=== PATIENT | female | born 1965 | race Caucasian/White ===

== ENCOUNTER 2025-03-11 10:18 | Outpatient (REF) | payer BC, SELFPAY ==
--- NOTE | ~2025-03-11 | XR_ITS ---
EXAMINATION: XR ABDOMEN 1 VIEW (KUB) HISTORY: abd pain and cramping COMPARISON: There are no prior studies available for comparison. FINDINGS: Two supine views of the abdomen are submitted. The bowel gas pattern is unremarkable, without evidence of mechanical obstruction. There are vascular calcifications in the pelvis. There are no abnormal soft tissue masses. There is moderate degenerative disc disease at L5-S1. XR/XR KUB IMPRESSION: Unremarkable bowel gas pattern. Electronically signed by: Dany Hernandez MD 03/11/2025 11:42 AM EDT
--- OUTSIDE RECORDS SUMMARY | 2025-03-11 11:17 | XMS_ITS | Data Portability ---
Author Organization [facility], , [facility] Address [address] [place] [address] Assessment Encounter Date Assessment Date Assessment LastModified by Organization Details LastModified Time 06/23/2020 06/23/2020 Patient agreed to this visit via a secure telehealth platform due to the COVID -19 pandemic. Patient understands this is a scheduled visit and the usual procedures with regard to billing and confidentialit y apply. Patient was notified that the provider [place] [facility] [place] During the visit the patient s medical history and medical record were reviewed. The patient was notified to call our office for worsening or urgent symptoms. jfaaron Not available 06/23/2020 17:16:17 09/10/2020 09/10/2020 Patient agreed to this visit via a secure telehealth platform due to the COVID -19 pandemic. Patient understands this is a scheduled visit and the usual procedures with regard to billing and confidentialit y apply. Patient was notified that the provider location is [place] Patient location: home During the visit the patient s medical history and medical record were reviewed. The patient was notified to call our office for worsening or urgent symptoms. [email or web address] Not available 09/10/2020 09:07:31 Plan of Treatment Reminders Order Date Submit Date Provider Last Modified By Organization Details Last Modified Time Details Appointments None recorded. Lab C3 + C4 (complement ), serum 2020 021 [facility], [address] [place], [address], 11:56:04 sjogren antibody panel (ssa, ssb, ro, la), serum 2020 021 [facility], [address] [place] [address], [address], 13:34:11 antoni-1 Ab, serum 2020 021 [facility], [address] [place] [address], [id number], 1 14:22:17 protein electrophor esis panel, serum or plasma 2020 021 [facility], [address] [place] [address], [id number], 1 17:06:02 [id number]-B27 genotype, blood 2020 021 [facility], [address] [place] [address], [address], 1 14:22:17 erythrocyte sedimentati on rate by westergren method 2020 021 [facility], [address] [place] [address], [address], 1 12:05:15 C-reactive protein, quantitativ e, serum or plasma 2020 021 [facility], [address] [place] [address], [address], 12:21:58 BMP, serum or plasma 2020 021 [facility], [address] [place] [address], [address], 1 13:56:40 lipid panel, serum 2020 021 [facility], [address] [place] [address], [address], 1 13:56:40 TSH, serum or plasma 2020 021 [facility], [address] [place] [address], [address], 1 16:03:05 C-reactive protein, quantitativ e, serum or plasma 2019 [facility], [address] [place] [address], [address], 1 16:12:50 ESR (erythrocyt e sedimentati on rate), blood 2019 [facility], [address] [place] [address], [id number], 1 14:45:29 rf (rheumatoid factor), serum 2019 [facility], [address] [place] [address], [address], 1 22:27:33 ANGELICA (antinuclea r antibodies) screen, ifa, serum 2019 [facility], [address] [place] [address], [address], 1 22:27:33 ccp (cyclic citrullinat ed peptide) igg, serum 2019 [facility], [address] [place] [address], [address], 1 22:27:35 lyme disease igg+igm Ab, serum 2019 [facility], [address] [place] [address], [address], 1 22:27:34 uric acid, serum or plasma 2019 [facility], [address] [place] [address], [address], 16:12:49 Referral orthopedic referral 2019 LEORA Not available 05:06:32 Procedures colonoscopy procedure (PROC) 2019 codillee 1 [facility], [address] [place], [address], 0 12:27:31 Surgeries None recorded. Imaging XR, knee - R knee pain after fall 02/2020 [facility] (Im[facility]), [address] [place], [address], 0 08:56:44 XR, hand 2019 [facility] [address] [place], [address], 0 09:01:08 Medication Orders None recorded. Patient TargetsNo targets recorded. Patient Instructions Encounter Date Encounter Id Patient Instructions Last Modified By Organization Details Last Modified Time 06/23/2020 [id number] rec: haelthier diet- for hand joints. see dr martinez and get labs for inflammatory arhtropathy and knee x-ray [facility] Not available 06/23/2020 17:26:51 09/10/2020 [id number] well visit, wome n 50 to 65: care instructions Not available 09/10/2020 09:06:59 - can schedule for in office visit for pap smear once recovered from surgery [email or web address] Not available 09/10/2020 09:07:13 Reason for Referral Orthopedic Referral for Pain in right knee Referring Physician: Fran Lyman, Family Medicine, Encounter Date: 06/23/2020 Results Created Date Observation Date Name Description Value Unit Range Abnormal Flag Note LastModifiedBy Organization Detail LastModifiedTime 09/01/20 20 09/01/2020 staph yloco ccus sp, cultu re, unspe cifie d speci men special requests None Not Available [facility] ([facility]) [address] [place], [address], 09/03/2020 12:01:36 09/01/20 20 09/02/2020 staph yloco ccus sp, cultu re, unspe cifie d speci men MRSA/mssa pre-op cult No MRSA or MSSA isolat ed Not Available [facility] (Outpatient) [address] [place], [address], 09/03/2020 12:01:36 09/10/19 21 09/10/2020 BMP, serum or plasm a glucose 85 mg/dL 70-100 Not Available [address], [address], 09/10/2020 13:56:39 09/10/19 21 09/10/2020 BMP, serum or plasm a BUN 24 mg/dL 7-18 high Not Available [address], [address], 09/10/2020 13:56:39 09/10/19 21 09/10/2020 BMP, serum or plasm a creatinine 0.9 mg/dL 0.8-1. 3 Not Available [address], [address], 09/10/2020 13:56:39 09/10/19 21 09/10/2020 BMP, serum or plasm a B/C 26.7 ratio Not Available [address], [address], 09/10/2020 13:56:39 09/10/19 21 09/10/2020 BMP, serum or plasm a GFR -non 72.8 mL/mi n Recom elmer d GFR by the Natio nal Kidne y Found ation >60 mL/mi n/1.7 3m2 - Arely l <60 mL/mi n/1.7 3m2 - Chron ic Kidne y Disea se <15 mL/mi n/1.7 3m2 - Kidne y Failu re Not Available [address], [address], 09/10/2020 13:56:39 09/10/19 21 09/10/2020 BMP, serum or plasm a GFR - if 83.7 mL/mi n For Afric an Ameri can patie nts: Resul ts Multi plied by 1.21 Not Available [address], [address], 09/10/2020 13:56:39 09/10/19 21 09/10/2020 BMP, serum or plasm a sodium 142 mmol/ L 136-14 5 Not Available [address], [address], 09/10/2020 13:56:39 09/10/19 21 09/10/2020 BMP, serum or plasm a potassium 4.7 mmol/ L 3.5-5. 1 Not Available [address], [address], 09/10/2020 13:56:39 09/10/19 21 09/10/2020 BMP, serum or plasm a chloride 105 mmol/ L 96-107 Not Available [address], [address], 09/10/2020 13:56:39 09/10/1909/10/2020 BMP, serum or plasm a anion gap 8.9 5.0-15 .0 Not Available [address], [address], 09/10/2020 13:56:39 09/10/19 21 09/10/2020 BMP, serum or plasm a CO2 28 mmol/ L 21-32 Not Available [address], [address], 09/10/2020 13:56:39 09/10/1909/10/2020 BMP, serum or plasm a calcium 9.1 mg/dL 8.5-10 .3 Not Available [address], [address], 09/10/2020 13:56:39 09/10/1909/10/2020 lipid panel , serum cholesterol 238 mg/dL <200 mg/dl Delmy able 200-2 39 mg/dl Borde rline High >240 mg/dl High Not Available [address], [address], 09/10/2020 13:56:40 09/10/19 21 09/10/2020 lipid panel , serum triglyceride s 157 mg/dL <150 mg/dL Arely l 150-1 99 mg/dL Borde rline High 200-4 99 mg/dL High >500 mg/dL Very High Not Available [address], [address], 09/10/2020 13:56:40 09/10/19 21 09/10/2020 lipid panel , serum direct HDL 53 mg/dL <40 mg/dl - Major Risk for CHD >60 mg/dl - Negat christen Risk for CHD Not Available [address], [address], 09/10/2020 13:56:40 09/10/19 21 09/10/2020 LDL, calcu lated , serum (OBS) LDL - calculated 153.6 RISK CATEG ORY LDL GOAL _ CHD or CHD Risk Equiv alent s <100 mg/dl (10-y ear risk >20%) 2+ Risk Facto rs <130 mg/dl (10-y ear risk <= 20%) 0-1 Risk Facto r <160 mg/dl [facility] all peopl e with 0-1 risk facto r have a 10 year risk <10%, thus 10 year risk asses ment in peopl e with 0-1 risk facto r is not neces sanjay. Not Available [address], [address], 09/10/2020 13:56:41 09/10/19 21 09/10/2020 ESR (eryt hrocy te sedim entat ion rate) , blood sed rate 19.0 0.0-15 .0 high Not Available [address], [address], 09/10/2020 14:45:29 09/10/1909/10/2020 TSH, serum or plasm a TSH 1.88 uIU/m L 0.50-6 .00 The Ameri can Colle ge of Endoc rinol ogy and Ameri can Thyro id Assoc iatio n recom mend goal TSH value s ayan en 0.4-4 .0 mIU/m L. Not Available [address], [address], 09/10/2020 16:03:05 09/10/19 21 09/10/2020 uric acid, serum or plasm a uric acid 5.6 mg/dL 2.6-6. 0 Not Available [address], [address], 09/10/2020 16:12:49 09/10/19 21 09/10/2020 C-harley ctive prote in, quant itati ve, serum or plasm a C-reactive protein -quant 2.5 mg/L 0.0-9. 0 Not Available [address], [address], 09/10/2020 16:12:50 09/10/19 21 09/11/2020 rf (rheu matoi d facto r), serum rheumatoid factor <14 IU/mL <14 normal Not Available [employer] [facility] [address], [address], 09/11/2020 22:27:33 09/10/19 21 09/11/2020 ANGELICA (anti nucle ar antib odies ) scree n, ifa, serum ANGELICA screen, ifa POSITI VE negati ve abnormal ANGELICA IFA is a first line scree n for detec ting the prese nce of up to appro ximat naseem 150 autoa ntibo dies in vario us autoi mmune disea ses. A posit christen ANGELICA IFA resul t is sugge stive of autoi mmune disea se and refle xes to titer and lissate rn. Furth er labor atory testi ng may be consi dered if clini kyrie indic ated. For addit ional infor matio n, pleas e refer to http: //orion Cortes stDia gnost ics.c om/fa q/FAQ 177 (This link is being provi ded for infor irma strange/ educa barbara l purpo ses only. ) Not Available [facility] [address], [place], [address], 09/11/2020 22:27:33 09/10/19 21 09/11/2020 ANGELICA (anti nucle ar antib odies ) scree n, ifa, serum ANGELICA titer 1:40 titer high A low level ANGELICA titer may be prese nt in pre-c linic al autoi mmune disea ses and arely l indiv idual s. Refer ence Range <1:40 Negat christen 1:40- 1:80 Low Antib shirley Level >1:80 Ravia farhana Antib shirley Level Not Available [facility] [address], [address], 09/11/2020 22:27:33 09/10/19 21 09/11/2020 ANGELICA (anti nucle ar antib odies ) scree n, ifa, serum ANGELICA pattern Mitoti c, Centro some abnormal Disti nct centr ioles (1-2/ cell) in cytop lasm and at the poles of mitot ic spind le. Patte rn is rare in syste radha scler osis, Amelie ud's pheno chele , and some infec tions (jas l and mycop lasma ). AC-24 : Centr osome Inter natio nal Conse nsus on ANGELICA Patte rns (http s://d oi.or g/10. 1515/ ccl2017- 0052) Not Available [facility] [address], [address], 09/11/2020 22:27:33 09/10/19 21 09/11/2020 ANGELICA (anti nucle ar antib odies ) scree n, ifa, serum ANGELICA titer 1:40 titer high A low level ANGELICA titer may be prese nt in pre-c linic al autoi mmune disea ses and arely l indiv idual s. Refer ence Range <1:40 Negat christen 1:40- 1:80 Low Antib shirley Level >1:80 Ravia farhana Antib shirley Level Not Available [facility] [address], [address], 09/11/2020 22:27:33 09/10/19 21 09/11/2020 ANGELICA (anti nucle ar antib odies ) scree n, ifa, serum ANGELICA pattern Nuclea r, Fine Speckl ed abnormal Fine speck led patte rn is assoc iated with Sjogr en's syndr ome, syste radha lupus eryth emato ibrahima (SLE) and derma tomyo sitis . AC-4: Fine Speck led Inter natio nal Conse nsus on ANGELICA Patte rns (http s://d oi.or g/10. 1515/ [facility]- 2017- 0052) Not Available [facility] [address], [place], [address], 09/11/2020 22:27:33 09/10/19 21 09/11/2020 lyme disea se igg+i gm, serum , refle x weste rn blot lyme Ab screen <0.90 index normal Index Inter preta tion ----- ----- ----- ---- < 0.90 Negat christen 0.90- 1.09 Equiv ocal > 1.09 Posit christen As recom elmer d by the Food and Drug Admin istra tion (FDA) , all sampl es with posit christen or equiv ocal resul ts in a Borre mat burgd orfer i antib shirley scree n will be teste d using a blot metho d. Posit christen or equiv ocal scree pramod test resul ts shoul d not be inter prete d as truly posit christen until verif ied as such using a suppl ement al assay (e.g. , B. burgd orfer i blot) . The scree pramod test and/o r blot for B. burgd orfer i antib odies may be false ly negat christen in early stage s of Lyme disea se, inclu ding the perio d when eryth tod migra ns is appar ent. Not Available [facility] [address], [address], 09/11/2020 22:27:34 09/10/19 21 09/11/2020 ccp (cycl ic citru llina farhana pepti de) igg, serum cyclic citrullinate d peptide (ccp) Ab (IgG) <16 units normal Refer ence Range Negat christen: <20 Weak Posit christen: 20-39 Moder ate Posit christen: 40-59 Stron g Posit christen: >59 Not Available [facility] [address], [address], 09/11/2020 22:27:35 09/15/19 21 09/15/2020 SARS CoV 2 RNA (COVI D-19) , QL, barrel planer-P CR, respi rator y speci men covid-19 comment 14 Not Available [facility]) [address] [place] [address], [address], 09/15/2020 15:44:57 09/15/19 21 09/15/2020 SARS CoV 2 RNA (COVI D-19) , QL, barrel planer-P CR, respi rator y speci men covid testing status Sent to [facility] Not Available [facility] ([facility]) [address] [place], [address], 09/15/2020 15:44:57 09/15/19 21 09/16/2020 SARS CoV 2 RNA (COVI D-19) , QL, barrel planer-P CR, respi rator y speci men specimen source/descr iption ROSHNI CHACON AL SWAB Not Available [facility] ([facility]) [address] [place], [address], 09/16/2020 12:53:17 09/15/19 21 09/16/2020 SARS CoV 2 RNA (COVI D-19) , QL, barrel planer-P CR, respi rator y speci men sars-cov 2 (covid-19) PCR Not Detect ed not detect ed Negat christen resul ts do not precl ude SARS- CoV-2 infec tion and shoul d not be used as the sole basis for patie nt manag ement decis ions. Negat christen resul ts must be combi gabriele with clini toya obser vatio ns, patie nt histo ry, and epide miolo gical infor matio n. Optim um speci men types and timin g for peak viral level s durin g infec tion by SARS- CoV-2 have not been deter mined . Colle ction of multi ple speci mens from the same patie nt may be neces sanjay to detec t the virus . This test has been autho rized by the FDA under an Emerg ency Use Autho rizat ion (EUA) for use by autho rized labor atori es. Not Available [facility] ([facility]) [address] [place], [address], 09/16/2020 12:53:17 09/19/19 21 09/19/2020 brady radha respi rator y viral order (pro) test ordered Rapid COVID has been ordere d Not Available [facility]) [address] [place], [address], 09/19/2020 10:55:01 09/19/19 21 09/19/2020 brady radha respi rator y viral order (pro) specimen source NASAL Not Available [facility] ([facility]) [address] [place], [address], 09/19/2020 10:55:01 09/19/19 21 09/19/2020 brady radha respi rator y viral order (pro) sars-cov-2 result Negati ve negati ve Negat christen resul ts do not precl ude SARS- CoV-2 infec tion and shoul d not be used as the sole basis for patie nt manag ement decis ions. Negat christen resul ts must be combi gabriele with clini toya obser vatio ns, patie nt histo ry, and epide miolo gical infor matio n. Testi ng was perfo rmed using the Abbot t ID NOW COVID -19 assay perfo rmed on the Abbot t ID NOW Instr ument . Fact sheet s for this Emerg ency Use Autho rizat ion can be found at the [employer] links : For Healt hcare Provi ders: https ://[employer].OpenROV .gov/ media /5108 23/do wnloa d For Patie nts: https ://[employer].OpenROV .gov. media /3188 24/do wnloa d. Not Available [facility]) [address] [place] [address], [address], 09/19/2020 10:55:01 10/10/19 21 10/10/2020 CBC WBC 4.96 K/ L 3.98-1 0.04 Not Available [address], [address], 10/10/2020 10:35:07 10/10/19 21 10/10/2020 CBC RBC 4.19 M/ L 3.93-5 .22 Not Available [address], [address], 10/10/2020 10:35:07 10/10/19 21 10/10/2020 CBC HGB 13.3 g/dL 11.2-1 5.7 Not Available [address], [address], 10/10/2020 10:35:07 10/10/19 21 10/10/2020 CBC HCT 39.7 % 34.1-4 4.9 Not Available [address], [address], 10/10/2020 10:35:07 10/10/19 21 10/10/2020 CBC MCV 94.7 fL 79.4-9 4.8 Not Available [address], [address], 10/10/2020 10:35:07 10/10/19 21 10/10/2020 CBC MCH 31.7 pg 25.6-3 2.2 Not Available [address], [address], 10/10/2020 10:35:07 10/10/19 21 10/10/2020 CBC MCHC 33.5 g/dL 32.2-3 5.5 Not Available [address], [address], 10/10/2020 10:35:07 10/10/1910/10/2020 CBC plt 263 K/ L 182-36 9 Not Available [address], [address], 10/10/2020 10:35:07 10/10/19 21 10/10/2020 CBC MPV 9.9 fL 9.4-12 .3 Not Available [address], [address], 10/10/2020 10:35:07 10/10/1910/10/2020 CBC neut% 66.2 % 34.0-7 1.1 Not Available [address], [address], 10/10/2020 10:35:07 10/10/1910/10/2020 CBC neut# 3.28 1.56-6 .13 Not Available [address], [address], 10/10/2020 10:35:07 10/10/19 21 10/10/2020 CBC lymph % 26.0 % 19.3-5 1.7 Not Available [address], [address], 10/10/2020 10:35:07 10/10/19 21 10/10/2020 CBC lymph # 1.29 K/ L 1.18-3 .74 Not Available [address], [address], 10/10/2020 10:35:07 10/10/19 21 10/10/2020 CBC mono% 5.0 % 4.7-12 .5 Not Available [address], [address], 10/10/2020 10:35:07 10/10/19 21 10/10/2020 CBC mono# 0.25 0.24-0 .56 Not Available [address], [address], 10/10/2020 10:35:07 10/10/19 21 10/10/2020 CBC eo% 2.6 % 0.7-5. 8 Not Available [address], [address], 10/10/2020 10:35:07 10/10/19 21 10/10/2020 CBC eo# 0.13 0.04-0 .36 Not Available [address], [address], 10/10/2020 10:35:07 10/10/19 21 10/10/2020 CBC baso% 0.2 % 0.1-1. 2 Not Available [address], [address], 10/10/2020 10:35:07 10/10/19 21 10/10/2020 CBC baso# 0.01 0.00-0 .08 Not Available [address], [address], 10/10/2020 10:35:07 10/10/19 21 10/10/2020 CBC RDW-CV 12.6 % 11.7-1 4.4 Not Available [address], [address], 10/10/2020 10:35:07 10/10/19 21 10/10/2020 CBC Ig% 0.000 % 0.000- 1.500 Ig % >0.5 Indic ates possi ble Left Shift Not Available [address], [address], 10/10/2020 10:35:07 10/10/19 21 10/10/2020 CBC Ig# 0.000 0.000- 0.093 Not Available [address], [address], 10/10/2020 10:35:07 10/10/19 21 10/10/2020 CBC NRBC% 0.0 % 0.0-0. 2 Not Available [address], [address], 10/10/2020 10:35:07 10/10/19 21 10/10/2020 CBC NRBC# 0.000 0.000- 0.012 Not Available [address], [address], 10/10/2020 10:35:07 10/10/19 21 10/10/2020 PT/IN R PT 9.9 secon ds 9.0-10 .4 Not Available [address], [address], 10/10/2020 10:57:35 10/10/19 21 10/10/2020 PT/IN R INR 1.0 0.9-1. [address]ed Value of 2.0-3 .0 for proph ylaxi s of Venou s Thomb osis, and preve ntion of Embol ism. Sugge sted Value of 2.5-3 .5 for preve ntion of Recur rent Embol ism or patie nts with Mecha nical Prost hetic Heart Valve s. Not Available [address], [address], 10/10/2020 10:57:35 10/10/19 21 10/10/2020 activ ated parti al throm bopla stin time, coagu latio n assay , blood PTT 25 secon ds 23-31 Not Available [address], [place], [address], 10/10/2020 10:57:36 10/10/19 21 10/14/2020 homoc ystei ne, serum or plasm a homocysteine 10.3 umol/ L <10.4 normal Homoc ystei ne is incre ased by funct ional defic iency of folat e or vitam in B12. Testi ng for methy lmalo june acid diffe renti ates betwe en these defic ienci es. Other cause s of incre ased homoc ystei ne inclu de renal failu re, folat e antag onist s such as metho trexa te and pheny toin, and expos ure to nitro us oxide . Ruby Peraza, et al., Ronna Inter n Med. 1999; 131(5 ):331 -9. Not Available [employer] [facility] [address], [address], 10/14/2020 11:31:23 10/10/19 21 10/14/2020 prote in S activ ity, plasm a protein S, activity 111 %_nor mal 60-140 normal Not Available [facility] [address], [place], [address], 10/14/2020 11:31:24 10/10/19 21 10/14/2020 prote in C activ ity, plasm a protein C, activity 180 %_nor mal 70-180 normal Not Available [facility] [address], [address], 10/14/2020 11:31:25 10/10/19 21 10/15/2020 quant ifero n(R)- TB gold plus, 1 tube quantiferon( R)-TB gold plus, 1 tube NEGATI VE negati ve normal Negat christen test resul t. M. tuber yogios is compl ex infec tion unlik naseem. Not Available [facility] [address], [address], 10/15/2020 11:31:27 10/10/19 21 10/15/2020 quant ifero n(R)- TB gold plus, 1 tube nil 0.07 IU/mL normal Not Available [facility] [address], [address], 10/15/2020 11:31:27 10/10/19 21 10/15/2020 quant ifero n(R)- TB gold plus, 1 tube mitogen-nil >10.00 IU/mL normal Not Available [facility] [address], [address], 10/15/2020 11:31:27 10/10/19 21 10/15/2020 quant ifero n(R)- TB gold plus, 1 tube TB1-nil 0.00 IU/mL normal Not Available [facility] [address], [address], 10/15/2020 11:31:27 10/10/19 21 10/15/2020 quant ifero n(R)- TB gold plus, 1 tube TB2-nil 0.00 IU/mL normal The Nil tube value refle cts the backg round inter feron gamma immun e respo nse of the patie nt's blood sampl e. This value has been subtr acted from the patie nt's displ ayed TB and Mitog en resul ts. Lower than expec farhana resul ts with the Mitog en tube preve nt false -nega tive Quant ifero n readi ngs by detec ting a patie nt with a poten tial immun e suppr essiv e condi tion and/o r subop timal pre-a nalyt ical speci men handl ing. The TB1 Antig en tube is coate d with the M. tuber culos is-sp ecifi c antig ens desig gabriele to elici t respo nses from TB antig en prime d CD4+ helpe r T-lym phocy carmela. The TB2 Antig en tube is coate d with the M. tuber culos is-sp ecifi c antig ens desig gabriele to elici t respo nses from TB antig en prime d CD4+ helpe r and CD8+ cytot oxic T-lym phocy carmela. For addit ional infor kayce wright e refer to https ://ed ucati on.[employer]/f aq/FA Q204 (This link is being provi ded for infor irma strange/ mark webster purpo ses only. ) Not Available [facility] [address], [address], 10/15/2020 11:31:27 10/10/19 21 10/15/2020 C3 + C4 (comp lemen t), serum complement component C3C 75 mg/dL 83-193 low Not Available [facility] [address], [address], 10/15/2020 11:31:32 10/10/19 21 10/15/2020 C3 + C4 (comp lemen t), serum complement component C4C 12 mg/dL 15-57 low Not Available [facility] [address], [address], 10/15/2020 11:31:32 10/10/19 21 10/15/2020 antip hosph olipi d antib shirley panel , serum interpretati on see note The antip hosph olipi d antib shirley syndr ome (APS) is a clini toya-p athol ogic corre latio n that inclu adonis a clini toya event (e.g. throm bosis , pregn radha loss, throm bocyt openi a) and persi stent posit christen antip hosph o- lipid antib odies (IgM or IgG GARY >40 MPL/G PL, IgM or IgG anti- b2GPI antib odies or a lupus antic oagul ant). Inter natio nal conse nsus guide lines for APS sugge st waiti ng at least 12 weeks befor e retes ting to confi rm antib shirley persi stenc e. The Syste radha Lupus Inter natio nal Colla borat ing Clini cs immun ologi toya class ifica tion crite angela for syste radha lupus eryth emato ibrahima (SLE) inclu de testi ng for isoty pe IgA, which has yet to be incor po- rated into APS crite angela. Low level antip hosph olipi d antib odies may somet imes be detec farhana in the setti ng of infec tion, drug thera py or aging . Not Available [employer] [facility] [address], [address], 10/15/2020 11:31:32 10/10/19 21 10/15/2020 antip hosph olipi d antib shirley panel , serum B2 glycoprotein I (IgG)Ab <9 sgu <=20 Not Available [facility] [address], [address], 10/15/2020 11:31:32 10/10/19 21 10/15/2020 antip hosph olipi d antib shirley panel , serum B2 glycoprotein I (IgA)Ab <9 julia <=20 Not Available [employer] [facility] [address], [address], 10/15/2020 11:31:32 10/10/19 21 10/15/2020 antip hosph olipi d antib shirley panel , serum B2 glycoprotein I (IgM)Ab <9 smu <=20 Not Available [facility] [address], [address], 10/15/2020 11:31:32 10/10/19 21 10/15/2020 antip hosph olipi d antib shirley panel , serum phosphatidyl serine Ab (IgA) <20 U/mL <20 Phosp hatid ylser ine (IgA) Refer ence range : <20 U/mL Negat christen 20-30 U/mL Equiv ocal - Found in small perce ntage of the healt hy popul ation ; may be react christen >30 U/mL Posit christen - Risk facto r for throm bosis Not Available [facility] [place] [facility] [address], [place], [address], 10/15/2020 11:31:32 10/10/19 21 10/15/2020 antip hosph olipi d antib shirley panel , serum phosphatidyl serine Ab (IgG) <10 U/mL <10 Phosp hatid ylser ine (IgG) Refer ence range : <10 U/mL Negat christen 10-20 U/mL Equiv ocal - Found in small perce ntage of the healt hy popul ation ; may be react christen >20 U/mL Posit christen - Risk facto r for throm bosis and pregn radha loss. Not Available [facility] [facility] [address], [place], [address], 10/15/2020 11:31:32 10/10/19 21 10/15/2020 antip hosph olipi d antib shirley panel , serum phosphatidyl serine Ab (IgM) <25 U/mL <25 Phosp hatid ylser ine (IgM) Refer ence range : <25 U/mL Negat christen 25-35 U/mL Equiv ocal - Found in small perce ntage of the healt hy popul ation ; may be react christen >35 U/mL Posit christen - Risk facto r for throm bosis Not Available [facility] [facility] [address], [place], [address], 10/15/2020 11:31:32 10/10/19 21 10/15/2020 antip hosph olipi d antib shirley panel , serum cardiolipin Ab (IgA) <11 apl <=11 Cardi olipi n Ab (IgA) Refer ence Range : Value Inter preta tion ----- ----- - ----- ----- ----- - < or = 11 Negat christen 12 - 20 Indet ermin ate 21 - 80 Low to Mediu m Posit christen > 80 High Posit christen Not Available [facility] [address], [address], 10/15/2020 11:31:32 10/10/19 21 10/15/2020 antip hosph olipi d antib shirley panel , serum cardiolipin Ab (IgG) <14 gpl <=14 Cardi olipi n Ab (IgG) Refer ence Range : Value Inter preta tion ----- ----- - ----- ----- ----- - < or = 14 Negat christen 15 - 20 Indet ermin ate 21 - 80 Low to Mediu m Posit christen > 80 High Posit christen Not Available [employer] [facility] [address], [address], 10/15/2020 11:31:32 10/10/1910/15/2020 antip hosph olipi d antib shirley panel , serum cardiolipin Ab (IgM) <12 mpl <=12 Cardi olipi n Ab (IgM) Refer ence Range : Value Inter preta tion ----- ----- - ----- ----- ----- - < or = 12 Negat christen 13 - 20 Indet ermin ate 21 - 80 Low to Mediu m Posit christen > 80 High Posit christen Not Available [facility] [facility] [address], [address], 10/15/2020 11:31:32 10/10/19 21 10/15/2020 dsDNA Ab, serum DNA (ds) antibody <1 IU/mL normal IU/mL Inter preta tion < or = 4 Negat christen 5-9 Indet ermin ate > or = 10 Posit christen Not Available [facility] [address], [address], 10/15/2020 11:31:33 10/10/19 21 10/15/2020 ccp (cycl ic citru llina farhana pepti de) igg, serum cyclic citrullinate d peptide (ccp) Ab (IgG) <16 units normal Refer ence Range Negat christen: <20 Weak Posit christen: 20-39 Moder ate Posit christen: 40-59 Stron g Posit christen: >59 Not Available [facility] [address], [address], 10/15/2020 11:31:34 10/10/19 21 10/15/2020 reardon Ab + aircraft seat upholsterer Ab, serum sm antibody <1.0 NEG ai <1.0 neg normal Not Available [facility] [address], [address], 10/15/2020 11:31:35 10/10/19 21 10/15/2020 reardon Ab + aircraft seat upholsterer Ab, serum sm/aircraft seat upholsterer antibody <1.0 NEG ai <1.0 neg normal Not Available [facility] [address], [address], 10/15/2020 11:31:35 10/10/19 21 10/16/2020 RPR (rapi d plasm a reagi n), serum RPR NON-RE ACTIVE nonrea ctive Not Available [address], [address], 10/16/2020 14:01:15 11/11/19 21 11/11/2020 P-anc a, serum myeloperoxid ase antibody <1.0 ai normal Value Inter preta tion ----- ----- ----- ---- <1.0 No Antib shirley Detec farhana > or = 1.0 Antib shirley Detec farhana Autoa ntibo dies to myelo perox idase (MPO) are commo nly assoc iated with the follo wing small -vess el vascu litid es: micro scopi c polya ngiit is, polya rteri tis nodos a, Churg -Stra uss syndr ome, necro tizin g and cresc entic glome rulon ephri tis and occas ional ly granu lomat osis with polya ngiit is (Hank DAVIS er's) . The perin madan sinclair rn, (p-AN CA) is based large ly on autoa ntibo dy to myelo perox idase which serve s as the prima ry antig en. These autoa ntibo dies are prese nt in activ e disea se. Not Available [facility] [place] [facility] [address], [place], [address], 11/11/2020 13:57:01 11/11/19 21 11/11/2020 P-anc a, serum proteinase-3 antibody <1.0 ai normal Value Inter preta tion ----- ----- ----- ---- <1.0 No Antib shirley Detec farhana > or = 1.0 Antib shirley Detec farhana Autoa ntibo dies to prote inase -3 (VA-3 ) are accep farhana as satish cteri stic for granu lomat osis with polya ngiit is (Hank DAVIS er's) , and are detec table in 95% of the histo logic ally prove n cases . The cytop lasmi sky sinclair rn, (c-AN CA), is based large ly on autoa ntibo dy to VA-3 which serve s as the prima ry antig en. These autoa ntibo dies are prese nt in activ e disea se. Not Available [facility] [place] [facility] [address], [place], [address], 11/11/2020 13:57:01 11/11/19 21 11/13/2020 RPR (rapi d plasm a reagi n), serum RPR NON-RE ACTIVE nonrea ctive Not Available [facility] [address] [facility], [place], [address], 11/13/2020 14:02:56 11/16/19 21 11/15/2020 eryth rocyt e sedim entat ion rate by eryn thrasher d ESR 9 mm/h 0-30 Not Available [facility] [address] [place], [address], 11/15/2020 12:05:15 11/16/19 21 11/15/2020 C-harley ctive prote in, quant itati ve, serum or plasm a C reactive protein 5.2 mg/L 0.0-4. 0 high Not Available [facility] [address] [place], [address], 11/15/2020 12:21:58 11/16/19 21 11/15/2020 lfts (hepa tic panel ) alkaline phosphatase 92 U/L 39-117 Not Available [facility] (Out[facility] [address] [place], [address], 11/15/2020 12:22:01 11/16/19 21 11/15/2020 lfts (hepa tic panel ) total bilirubin 0.5 mg/dL 0.0-1. 2 Not Available [facility] [address] [place], [address], 11/15/2020 12:22:01 11/16/19 21 11/15/2020 lfts (hepa tic panel ) direct bilirubin <0.2 mg/dL 0-0.3 Not Available [facility] [address] [place], [address], 11/15/2020 12:22:01 11/16/19 21 11/15/2020 lfts (hepa tic panel ) bilirubin (indirect) NOT CALCUL ATED mg/dL 0-1.5 Not Available [facility] [address] [place], [address], 11/15/2020 12:22:01 11/16/19 21 11/15/2020 lfts (hepa tic panel ) AST 16 U/L 0-37 Not Available [facility] [address] [place], [address], 11/15/2020 12:22:01 11/16/19 21 11/15/2020 lfts (hepa tic panel ) ALT 11 U/L 0-40 Not Available [facility] [address] [place], [address], 11/15/2020 12:22:01 11/16/19 21 11/15/2020 lfts (hepa tic panel ) total protein 6.8 g/dL 6.5-8. 0 Not Available [facility] [address] [place], [address], 11/15/2020 12:22:01 11/16/19 21 11/15/2020 lfts (hepa tic panel ) albumin 4.0 g/dL 3.9-4. 8 Not Available [facility] [address] [place], [address], 11/15/2020 12:22:01 11/16/19 21 11/15/2020 lfts (hepa tic panel ) globulin 2.8 g/dL 1-4.8 Not Available [facility] [address] [place], [address], 11/15/2020 12:22:01 11/16/19 21 11/15/2020 lfts (hepa tic panel ) A/G ratio 1.43 ratio 1.00-4 .80 Not Available [facility] [address] [place], [address], 11/15/2020 12:22:01 11/16/19 21 11/17/2020 C3 (comp lemen t), serum or plasm a C3 116 mg/dL 81-157 Not Available [facility] [address] [place] [address], [address], 11/17/2020 11:13:58 11/16/19 21 11/17/2020 C4 (comp lemen t), serum or plasm a C4 22 mg/dL 12-39 Not Available [facility] [address] [place] [address], [address], 11/17/2020 11:13:59 11/16/19 21 11/17/2020 ANGELICA (anti nucle ar antib odies ) scree n, serum ANGELICA screen on hep 2 POSITI VE negati ve abnormal An ANGELICA Titer has been refle xed. The resul catrina smith Not Available [facility] [address] [place] [address], [address], 11/17/2020 14:49:19 11/16/19 21 11/18/2020 hla-B 27, blood hla-B27 result NEGATI VE not applic able Not Available [facility] [address] [place] [address], [address], 11/18/2020 15:49:46 11/16/1911/18/2020 hla-B 27, blood interpretati on SEE NOTE (NOTE ) HLA-B 27 antig en was not detec farhana. ----- ----- ----- ----A DDITI ONAL INFOR MATIO N---- ----- ----- ----- Metho d: Flow Cytom etry CLIA: [id number] CLIA Lab Direc tor: DAVID Rodriguez MD,Ph D Not Available [facility] [address] [place] [address], [address], 11/18/2020 15:49:46 11/16/19 21 11/19/2020 ANGELICA (anti nucle ar antib odies ) titer + patte rn, ifa, serum ANGELICA titer 1:160 HOMOGE NEOUS 1:160 Speck led Not Available [facility] [address] [place], [address], 11/19/2020 15:29:20 11/16/19 21 11/19/2020 immun ofixa tion only immunofixati on NO MONOCL ONAL PROTEI N DETECT ED. Not Available [facility] [address] [place], [address], 11/19/2020 18:03:43 11/16/19 21 11/20/2020 anca, serum C-anca NEGATI VE negati ve Not Available [facility] [address] [place] [address], [address], 11/20/2020 13:34:00 11/16/19 21 11/20/2020 anca, serum P-anca NEGATI VE negati ve (NOTE ) Negat christen for cANCA and pANCA patte rns by immun ofluo resce nce. ----- ----- ----- ----A DDITI ONAL INFOR MATIO N---- ----- ----- ----- This test was franc buchanan and its perfo rmanc e satish cteri stics deter mined by [place] Neda swanson in a dee r consi stent with CLIA peggy morris ts. This test has not been clear ed or appro anaya by the U.S. Food and Drug Admin istra tion. Not Available [facility] [address] [place], [address], 11/20/2020 13:34:00 11/16/19 21 11/20/2020 antoni-1 Ab, serum antoni 1 IgG <0.2 U <1.0 (negat christen) Not Available [facility] [address] [place], [address], 11/20/2020 13:34:02 11/16/19 21 11/20/2020 prote in elect ropho resis , monoc lonal , serum total protein 6.5 g/dL 6.3-7. 9 Not Available [facility] [address] [place], [address], 11/20/2020 13:34:09 11/16/19 21 11/20/2020 prote in elect ropho resis , monoc lonal , serum albumin 3.1 g/dL 3.4-4. 7 low Not Available [facility] [address] [place], [address], 11/20/2020 13:34:09 11/16/19 21 11/20/2020 prote in elect ropho resis , monoc lonal , serum alpha-1 globulin 0.3 g/dL 0.1-0. 3 Not Available [facility] [address] [place], [address], 11/20/2020 13:34:09 11/16/19 21 11/20/2020 prote in elect ropho resis , monoc lonal , serum alpha-2 globulin 0.9 g/dL 0.6-1. 0 Not Available [facility] [address] [place], [address], 11/20/2020 13:34:09 11/16/19 21 11/20/2020 prote in elect ropho resis , monoc lonal , serum beta-globuli n 1.1 g/dL 0.7-1. 2 Not Available [facility] [address] [place], [address], 11/20/2020 13:34:09 11/16/19 21 11/20/2020 prote in elect ropho resis , monoc lonal , serum gamma-globul in 1.2 g/dL 0.6-1. 6 Not Available [facility] [address] [place], [address], 11/20/2020 13:34:09 11/16/19 21 11/20/2020 prote in elect ropho resis , monoc lonal , serum A/G ratio 0.92 Not Available [facility] [address] [place], [address], 11/20/2020 13:34:09 11/16/19 21 11/20/2020 prote in elect ropho resis , monoc lonal , serum M spike g/dL Test compo nent not appli cable or not repor farhana. Test compo nent not appli cable or not repor farhana. Not Available [facility] [address] [place], [address], 11/20/2020 13:34:09 11/16/19 21 11/20/2020 prote in elect ropho resis , monoc lonal , serum impression SEE NOTE (NOTE ) No appar ent monoc lonal prote in on serum elect ropho resis . See Immun ofixa tion. Not Available [facility] [address] [place], [address], 11/20/2020 13:34:09 11/16/19 21 11/20/2020 prote in elect ropho resis , monoc lonal , serum immunofixati on NO MONOCL ONAL PROTEI N DETECT ED. Not Available [facility] [address] [place], [address], 11/20/2020 13:34:09 11/16/19 21 11/20/2020 sjogr en antib shirley panel (ssa, ssb, ro, la), serum ss-A/RO IgG <0.2 U <1.0 (negat christen) Not Available [facility] [address] [place], [address], 11/20/2020 13:34:11 11/16/19 21 11/20/2020 sjogr en antib shirley panel (ssa, ssb, ro, la), serum ss-B/la IgG <0.2 U <1.0 (negat christen) Not Available [facility] [address] [place], [address], 11/20/2020 13:34:11 11/19/19 21 11/18/2020 urina lysis , dipst ick color YELLOW yellow Not Available [facility] [address] [place], [address], 11/18/2020 16:32:00 11/19/19 21 11/18/2020 urina lysis , dipst ick clarity CLEAR Not Available [facility] [address] [place], [address], 11/18/2020 16:32:00 11/19/19 21 11/18/2020 urina lysis , dipst ick glucose NEGATI VE negati ve Not Available [facility] [address] [place], [address], 11/18/2020 16:32:00 11/19/19 21 11/18/2020 urina lysis , dipst ick bili NEGATI VE negati ve Not Available [facility] [address] [place], [address], 11/18/2020 16:32:00 11/19/19 21 11/18/2020 urina lysis , dipst ick ketones NEGATI VE negati ve Not Available [facility] [address] [place], [address], 11/18/2020 16:32:00 11/19/19 21 11/18/2020 urina lysis , dipst ick specific gravity 1.015 1.005- 1.030 Not Available [facility] [address] [place], [address], 11/18/2020 16:32:00 11/19/19 21 11/18/2020 urina lysis , dipst ick blood NEGATI VE negati ve Not Available [facility] [address] [place], [address], 11/18/2020 16:32:00 11/19/19 21 11/18/2020 urina lysis , dipst ick pH 6.0 5.0-8. 0 Not Available [facility] ([facility] [address] [place], [address], 11/18/2020 16:32:00 11/19/19 21 11/18/2020 urina lysis , dipst ick protein NEGATI VE negati ve Not Available [facility] [address] [place], [address], 11/18/2020 16:32:00 11/19/19 21 11/18/2020 urina lysis , dipst ick nitrite NEGATI VE negati ve Not Available [facility] [address] [place], [address], 11/18/2020 16:32:00 11/19/19 21 11/18/2020 urina lysis , dipst ick leukocyte esterase, ur TRACE negati ve abnormal Not Available [facility] [address] [place], [address], 11/18/2020 16:32:00 11/19/19 21 11/18/2020 urine sedim ent WBC 5-10 /hpf none seen abnormal Not Available [facility] [address] [place], [address], 11/18/2020 16:50:56 11/19/19 21 11/18/2020 urine sedim ent RBC 3-5 /hpf none seen abnormal Not Available [facility] [address] [place], [address], 11/18/2020 16:50:56 11/19/19 21 11/18/2020 urine sedim ent urine epithelial 0-4 none seen abnormal Not Available [facility] [address] [place], [address], 11/18/2020 16:50:56 11/19/19 21 11/18/2020 urine sedim ent mucus 1+ /hpf none seen abnormal Not Available [facility] [address] [place], [address], 11/18/2020 16:50:56 11/19/19 21 11/18/2020 urine sedim ent bacteria TRACE /hpf none seen abnormal Not Available [facility] [address] [place], [address], 11/18/2020 16:50:56 11/19/19 21 11/18/2020 urine sedim ent cast 0-2 HYALI NE CAST Not Available [facility] [address] [place], [address], 11/18/2020 16:50:56 11/25/19 21 2020 C-harley ctive prote in, quant itati ve, serum or plasm a C reactive protein 5.2 mg/L 0.0-4. 0 high Not Available [facility] [address] [place], [address], 2020 18:27:18 11/25/19 21 2020 lfts (hepa tic panel ) alkaline phosphatase 105 U/L 39-117 Not Available [facility] [address] [place], [address], 2020 18:27:19 11/25/19 21 2020 lfts (hepa tic panel ) total bilirubin 0.2 mg/dL 0.0-1. 2 Not Available [facility] [address] [place], [address], 2020 18:27:19 11/25/19 21 2020 lfts (hepa tic panel ) direct bilirubin <0.2 mg/dL 0-0.3 Not Available [facility] [address] [place], [address], 2020 18:27:19 11/25/19 21 2020 lfts (hepa tic panel ) bilirubin (indirect) NOT CALCUL ATED mg/dL 0-1.5 Not Available [facility] [address] [place], [address], 2020 18:27:19 11/25/19 21 2020 lfts (hepa tic panel ) AST 15 U/L 0-37 Not Available [facility] [address] [place], [address], 2020 18:27:19 11/25/19 21 2020 lfts (hepa tic panel ) ALT 12 U/L 0-40 Not Available [facility] [address] [place], [address], 2020 18:27:19 11/25/19 21 2020 lfts (hepa tic panel ) total protein 7.1 g/dL 6.5-8. 0 Not Available [facility] [address] [place], [address], 2020 18:27:19 11/25/19 21 2020 lfts (hepa tic panel ) albumin 4.0 g/dL 3.9-4. 8 Not Available [facility] [address] [place], [address], 2020 18:27:19 11/25/19 21 2020 lfts (hepa tic panel ) globulin 3.1 g/dL 1-4.8 Not Available [facility] [address] [place], [address], 2020 18:27:19 11/25/19 21 2020 lfts (hepa tic panel ) A/G ratio 1.29 ratio 1.00-4 .80 Not Available [facility] [address] [place], [address], 2020 18:27:19 11/25/19 21 2020 eryth rocyt e sedim entat ion rate by eryn thrasher d ESR 16 mm/h 0-30 Not Available [facility] [address] [place], [address], 2020 19:08:00 11/25/19 21 2020 urina lysis , compl ete WBC 11-20 /hpf none seen abnormal Not Available [facility] [address] [place], [address], 2020 20:57:45 11/25/19 21 2020 urina lysis , compl ete RBC 0-2 /hpf none seen abnormal Not Available [facility] [address] [place], [address], 2020 20:57:45 11/25/19 21 2020 urina lysis , compl ete urine epithelial 0-4 none seen abnormal Not Available [facility] [address] [place], [address], 2020 20:57:45 11/25/19 21 2020 urina lysis , compl ete mucus Trace /hpf none seen abnormal Not Available [facility] [address] [place], [address], 2020 20:57:45 11/25/19 21 2020 urina lysis , compl ete bacteria Trace /hpf none seen abnormal Not Available [facility] [address] [place], [address], 2020 20:57:45 11/25/19 21 2020 urina lysis , compl ete color Yellow yellow Not Available [facility] [address] [place], [address], 2020 20:57:45 11/25/19 21 2020 urina lysis , compl ete clarity Clear Not Available [facility] [address] [place], [address], 2020 20:57:45 11/25/19 21 2020 urina lysis , compl ete glucose Negati ve negati ve Not Available [facility] [address] [place], [address], 2020 20:57:45 11/25/19 21 2020 urina lysis , compl ete bili Negati ve negati ve Not Available [facility] [address] [place], [address], 2020 20:57:45 11/25/19 21 2020 urina lysis , compl ete ketones Negati ve negati ve Not Available [facility] ([facility] [address] [place], [address], 2020 20:57:45 11/25/19 21 2020 urina lysis , compl ete specific gravity 1.010 1.005- 1.030 Not Available [facility] [address] [place], [address], 2020 20:57:45 11/25/19 21 2020 urina lysis , compl ete blood Negati ve negati ve Not Available [facility] [address] [place], [address], 2020 20:57:45 11/25/19 21 2020 urina lysis , compl ete pH 6.5 5.0-8. 0 Not Available [facility] [address] [place], [address], 2020 20:57:45 11/25/19 21 2020 urina lysis , compl ete protein Negati ve negati ve Not Available [facility] [address] [place], [address], 2020 20:57:45 11/25/19 21 2020 urina lysis , compl ete nitrite Negati ve negati ve Not Available [facility] [address] [place], [address], 2020 20:57:45 11/25/19 21 2020 urina lysis , compl ete leukocyte esterase, ur 2+ negati ve abnormal Not Available [facility] [address] [place], [address], 2020 20:57:45 11/25/19 21 11/26/2020 C3 (comp lemen t), serum or plasm a C3 113 mg/dL 81-157 Not Available [facility] [address] [place] [address], [address], 11/26/2020 11:24:09 11/25/19 21 11/26/2020 C4 (comp lemen t), serum or plasm a C4 22 mg/dL 12-39 Not Available [facility] [address] [place] [address], [address], 11/26/2020 11:24:19 11/25/19 21 11/26/2020 ANGELICA (anti nucle ar antib odies ) scree n, serum ANGELICA screen on hep 2 Positi ve negati ve abnormal An ANGELICA Titer has been refle xed. The resul catrina smith Not Available [facility] [address] [place] [address], [address], 11/26/2020 14:34:53 11/25/19 21 11/26/2020 ANGELICA (anti nucle ar antib odies ) titer + patte rn, ifa, serum ANGELICA titer 1:80 Homoge neous Not Available [facility] [address] [place] [address], [address], 11/26/2020 14:40:05 11/25/19 21 11/27/2020 anca, serum C-anca Negati ve negati ve Not Available [facility] [address] [place] [address], [address], 11/27/2020 13:47:09 11/25/19 21 11/27/2020 anca, serum P-anca Negati ve negati ve (NOTE ) Negat christen for cANCA and pANCA patte rns by immun ofluo [place] n[place]. ----- ----- ----- ----A DDITI ONAL INFOR MATIO N---- ----- ----- ----- This test was devel oped and its perfo rmanc e satish cteri stics deter mined by [place] Neda c in a dee r consi stent with SURI fritz. This test has not been clear ed or appro anaya by the U.S. Food and Drug Admin istra tion. Not Available [facility] [address] [place], [address], 11/27/2020 13:47:09 11/25/19 21 11/27/2020 antoni-1 Ab, serum antoni 1 IgG <0.2 U <1.0 (negat christen) Not Available [facility] [address] [place], [address], 11/27/2020 13:47:11 11/25/19 21 11/27/2020 sjogr en antib shirley panel (ssa, ssb, ro, la), serum ss-A/RO IgG <0.2 U <1.0 (negat christen) Not Available [facility] [address] [place], [address], 11/27/2020 13:47:12 11/25/19 21 11/27/2020 sjogr en antib shirley panel (ssa, ssb, ro, la), serum ss-B/la IgG <0.2 U <1.0 (negat christen) Not Available [facility] (Outpatient) [address] [place], [address], 11/27/2020 13:47:12 11/25/19 21 11/27/2020 hla-B 27, blood hla-B27 result Negati ve not applic able Not Available [facility] (Outpatient) [address] [place], [address], 11/27/2020 14:07:21 11/25/19 21 11/27/2020 hla-B 27, blood interpretati on SEE NOTE (NOTE ) HLA-B 27 antig en was not detec farhana. ----- ----- ----- ----A MELVINAITI ONAL INFOR IRMA N---- ----- ----- ----- Angela d: Flow Cytom etry CLIA: [id number] CLIA Lab Direc tor: DAVID Rodriguez MD,Ph D Not Available [facility] (Outpatient) [address] [place], [address], 11/27/2020 14:07:21 11/25/19 21 11/27/2020 prote in elect ropho resis and isoty pe therapeutic antibody administered ? No Not Available [facility] (Outpatient) [address] [place], [address], 11/27/2020 16:30:30 11/25/19 21 11/27/2020 prote in elect ropho resis and isoty pe total protein 6.6 g/dL 6.3-7. 9 Not Available [facility] (Outpatient) [address] [place], [address], 11/27/2020 16:30:30 11/25/19 21 11/27/2020 prote in elect ropho resis and isoty pe albumin 3.2 g/dL 3.4-4. 7 low Not Available [facility] (Outpatient) [address] [place], [address], 11/27/2020 16:30:30 11/25/19 21 11/27/2020 prote in elect ropho resis and isoty pe alpha-1 globulin 0.2 g/dL 0.1-0. 3 Not Available [facility] (Outpatient) [address] [place], [address], 11/27/2020 16:30:30 11/25/19 21 11/27/2020 prote in elect ropho resis and isoty pe alpha-2 globulin 0.9 g/dL 0.6-1. 0 Not Available [facility] (Outpatient) [address] [place], [address], 11/27/2020 16:30:30 11/25/19 21 11/27/2020 prote in elect ropho resis and isoty pe beta-globuli n 1.0 g/dL 0.7-1. 2 Not Available [facility] (Outpatient) [address] [place], [address], 11/27/2020 16:30:30 11/25/19 21 11/27/2020 prote in elect ropho resis and isoty pe gamma-globul in 1.2 g/dL 0.6-1. 6 Not Available [facility] (Outpatient) [address] [place], [address], 11/27/2020 16:30:30 11/25/19 21 11/27/2020 prote in elect ropho resis and isoty pe A/G ratio 0.94 Not Available [facility] (Outpatient) [address] [place], [address], 11/27/2020 16:30:30 11/25/19 21 11/27/2020 prote in elect ropho resis and isoty pe M spike g/dL Test compo nent not appli cable or not repor farhana. Test compo nent not appli cable or not repor farhana. Not Available [facility] (Outpatient) [address] [place], [address], 11/27/2020 16:30:30 11/25/19 21 11/27/2020 prote in elect ropho resis and isoty pe impression SEE NOTE (NOTE ) No appar ent monoc lonal prote in on serum elect ropho resis . See Isoty pe. Not Available [facility] (Outpatient) [address] [place], [address], 11/27/2020 16:30:30 11/25/19 21 11/27/2020 prote in elect ropho resis and isoty pe M-protein isotype maldi-tof MS, S No monocl onal protei n detect ed. (NOTE ) ----- ----- ----- ----A DDITI ONAL INFOR MATIO N---- ----- ----- ----- The submi tted sampl e was assay ed by five separ ate immun opuri ficat ions for IgG, IgA, IgM, kappa and lambd a. The resul t refle cts the findi ngs of eithe r no monoc lonal prote in detec farhana or those monoc lonal immun oglob ulins that were detec farhana. This test was devel oped and its perfo rmanc e satish cteri stics deter mined by [facility] in a dee r consi stent with SURI fritz. This test has not been clear ed or appro anaya by the U.S. Food and Drug Admin istra tion. Not Available [facility] (Outpatient) [address] [place], [address], 11/27/2020 16:30:30 11/25/19 21 11/27/2020 prote in elect ropho resis and isoty pe flag M-protn isotype Negati ve negati ve Not Available [facility] (Outpatient) [address] [place], [address], 11/27/2020 16:30:30 11/25/19 21 12/22/2020 M-pro tein isoty pe only flag, M-protein isotype Negati ve negati ve (NOTE ) ----- ----- ----- ----A DDITI ONAL INFOR MATIO N---- ----- ----- ----- The submi tted sampl e was assay ed by five separ ate immun opuri ficat ions for IgG, IgA, IgM, kappa and lambd a. The resul t refle cts the findi ngs of eithe r no monoc lonal prote in detec farhana or those monoc lonal immun oglob ulins that were detec farhana. This test was devel oped and its perfo rmanc e satish cteri stics deter mined by [facility] in a dee r consi stent with CLIA requi remen ts. This test has not been clear ed or appro anaya by the U.S. Food and Drug Admin istra tion. Not Available [facility] (Outpatient) [address] [place], [address], 12/22/2020 12:23:56 11/25/1912/22/2020 M-pro tein isoty pe only M-protein isotype maldi-tof MS No monocl onal protei n detect ed. Not Available [facility] (Outpatient) [address] [place], [address], 12/22/2020 12:23:56 11/25/1912/22/2020 M-pro tein isoty pe only therapeutic antibody administered ? No Not Available [facility] (Outpatient) [address] [place], [address], 12/22/2020 12:23:56 11/25/1912/22/2020 M-pro tein isoty pe only flag, M-protein isotype Negati ve negati ve (NOTE ) ----- ----- ----- ----A DDITI ONAL INFOR MATIO N---- ----- ----- ----- The submi tted sampl e was assay ed by five separ ate immun rozina ficat ions for IgG, IgA, IgM, kappa and lambd a. The resul t refle cts the findi ngs of eithe r no monoc lonal prote in detec farhana or those monoc lonal immun oglob ulins that were detec farhana. This test was devel oped and its perfo rmanc e satish debbieri kolby kidd mined by [facility] in a dee r consi stent with CLIA requi remen ts. This test has not been clear ed or appro anaya by the U.S. Food and Drug Admin istra tion. Not Available [facility] (Outpatient) [address] [place], [address], 12/22/2020 12:38:27 11/25/1912/22/2020 M-pro tein isoty pe only M-protein isotype maldi-tof MS No monocl onal protei n detect ed. Not Available [facility] (Outpatient) [address] [place], [address], 12/22/2020 12:38:27 11/25/1912/22/2020 M-pro tein isoty pe only therapeutic antibody administered ? No Not Available [facility] (Outpatient) [address] [place], [address], 12/22/2020 12:38:27 06/26/20 20 06/24/2020 XR, knee OBSERV ATION: CLINIC AL HISTOR Y: Right knee pain after a fall 02/2020 . TECHNI QUE: AP, bilate ral obliqu e and latera l views of the right knee obtain ed. COMPAR LUDMILA: None. FINDIN GS: There is no fractu re, sublux ation or disloc ation. The joint spaces are mainta ined. There is a large knee effusi on. IMPRES JOSE: No acute bone abnorm ality. Urgent knee effusi on. Consid er soft tissue injury withou t or with direct marketing intern mateo bradford. Electr onical ly signed Readin g Physic angel: Eusebio Moncada ms [facility] (Imaging) [address], [place], [address], 06/28/2020 19:00:40 06/26/20 20 06/24/2020 XR, hand OBSERV ATION: CLINIC AL HISTOR Y: Right distal metaca rpal pain. TECHNI QUE: Three views of the right hand obtain ed. COMPAR LUDMILA: None. FINDIN GS: There is no acute fractu re, sublux ation, or disloc ation. The soft tissue s are unrema rkable . The joint spaces are preser anaya. There is a 2 mm intrao sseous cyst adjace nt in the proxim al phalan x of the fourth digit adjace nt to the PIP joint. There is mild osteop hytic spurri ng at the DIP joints of the second and third digits . IMPRES JOSE: No acute bone abnorm ality. Mild degene rative change s separa te from the area of pain. Electr onical ly signed Lo morfin Physic angel: Eusebio Moncada ms [facility] (Imaging) [address], [place], [place], [address], 06/28/2020 19:00:40 07/16/20 20 07/15/2020 MRI knee witho ut contr ast (righ t) HISTOR Y: Outsid e Radiol ogy Order COMPAR LUDMILA: None. TECHNI QUE: Exam perfor med on a 1.5 Dee high-f ield MRI scanne r. Axial proton densit y with fat suppre ssion, cline l proton densit y and proton densit y with fat suppre ssion, sagitt al T1, obliqu e sagitt al proton densit y and proton densit y with fat suppre ssion parall el to the plane of the ACL sequen maylin were obtain ed. MRI RIGHT KNEE FINDIN GS: Patell a: No patell a malali gnment or chondr omalac ia. Menisc i: No discoi d menisc us. Extrus ion of the medial menisc us from the joint space to arthri tis. There is abnorm al intras ubstan ce increa sed T2 signal within the logistics administrator ior horn of the medial menisc us indica tive of degene ration . There is focal T2 hyperi ntense defect in the logistics administrator ior menisc al root attach ment indica tive of a tear. There is mild frayin g of the inferi or margin of the logistics administrator ior menisc al root attach ment of the latera l menisc us. Crucia te ligame nts: Anteri or and logistics administrator ior crucia te ligame nts are intact . Collat eral ligame nts: Latera l collat eral ligame nt comple x is intact . There is mild thicke pramod of the proxim al medial collat eral ligame nt with surrou nding edema. Extens or mechan ism: Gustavo ceps and patell ar tendon s are intact . Bone marrow /joint : Mild medial knee compar tment joint space narrow ing and small osteop hytes. No malali gnment . There is mild patchy bone marrow edema signal in the medial femora l condyl e and medial tibial platea u. No destru ctive or suspic ious bone lesion s. Large joint effusi on. There is a large comple x Byrd' s cyst spanni ng 7.2 cm in length with direct marketing intern al debris and septat ions. There is modera te diffus e fatty muscle atroph y of the gastro cnemiu s muscle s and mild fatty atroph y of the distal thigh muscle s. IMPRES JOSE: 1.Medi al menisc us logistics administrator ior menisc al root attach ment tear, medial menisc us logistics administrator ior horn intras ubstan ce degene ration and frayin g of the latera l menisc us logistics administrator ior menisc al root attach ment. No bucket -handl e tear. 2.Grad e 2 proxim al medial collat eral ligame nt tear. 3.Larg e joint effusi on and large comple x Byrd' s cyst. 4.Mild medial knee compar tment osteoa rthrit is. 5.Mild medial femora l condyl e and tibial platea u reacti ve marrow edema due to arthri tis versus resolv ing small bone contus ions. Electr onical ly Signed by: Jimym pierce on 2019 8:38 AM Interp reted by: Jimmy pierce MD Signed by: Jimmy pierce MD Final result Rt knee wo Pt sts fell from horse in end of oct beg of november- pain since. No prior exams R KNEE PAIN AND SWELLI NG SINCE 02/22 FRAN SANTOS ND [facility] [address] [facility], [place], [address], 09/16/2020 13:46:47 09/01/2009/01/2020 isabel ROBERTS, tomos ynthe sis, bilat eral OBSERV ATION: CLINIC AL HISTOR Y: Screen ing. TECHNI QUE: 3D mammog campos (tomos ynthes is) and 2D mammog campos (C-vie w) images are genera farhana. Images review ed with a CAD system . COMPAR LUDMILA: Prior mammog bianca frantz h 2010. FINDIN GS: The breast parenc hyma is compos ed of scatte red areas of fibrog landul ar densit y. There are no suspic ious masses . There are no suspic ious microc alcifi cation s. The breast dominique ecture is normal . There has been no signif icant change compar ed to the prior study. IMPRES JOSE: No mammog raphic eviden ce of malign radha. Regula r mammog raphic screen ing recomm ended. The patien t was entere d into a remind er system with a target date for the next mammog adriel. Breast densit y: B. There are scatte red areas of fibrog landul ar densit y. BIRADS : 1, NEGATI VE Electr onical ly signed Lo morfin Physic angel: [facility] [place] [address] (Imaging) [address] , [place], [place], [address], 09/16/2020 07:57:19 12/27/19 25 12/25/2024 MAMMO , scree pramod, tomos ynthe sis, bilat eral MAMMO, SCREEN , ANGEL, BILAT: 025. BI-RAD S: 1 CLINIC AL: 59-yea r old Female for Bilate ral Screen ing Mammog adriel. [facility] lifeti me risk of 5.3%. No person al or first- degree family histor y of breast cancer . The patien t report s pain (6 months ) in both breast s. PRIOR EXAMS: Review ed previo us images from 2019. MAMMOG CAMPOS TECHNI QUE: 3D mammog campos (tomos ynthes is) and 2D mammog campos (C-vie w) images are genera farhana. Images review ed with a CAD system . DENSIT Y B. There are scatte red areas of fibrog landul ar densit y. MAMMOG CAMPOS FINDIN GS Bilate ral: No suspic ious mass, asymme try, microc alcifi cation , or other abnorm ality seen. CONCLU JOSE * No eviden ce of malign radha. RECOMM ENDATI ONS Bilate ral * Annual screen ing mammog campos. ADMINI STRATI VE: A lay summar y was mailed to your patien saad byrd the result s and recomm endati ons for follow -up. OVERAL L ASSESS MENT CATEGO RY BI-RAD S-1: Negati ve. The [employer] recomm ends annual screen ing mammog campos beginn ing at age 40 for women with averag e risk of breast cancer . ELECTR ONICAL LY SIGNED : Malcolm Alvarez M.D. on 2024 at 10:56: 57 AM Lo morfin Physic angel: Malcolm Alvarez [facility] (Imaging) [address] , [place], [address], 12/26/2024 11:03:33 Result Notes Documentation Provider Name and Address Organization Details Recorded Time Xr, Knee : OBSERVATION: CLINICAL HISTORY: Right knee pain after a fall 02/2020. TECHNIQUE: AP, bilateral oblique and lateral views of the right knee obtained. COMPARISON: None. FINDINGS: There is no fracture, subluxation or dislocation. The joint spaces are maintained. There is a large knee effusion. IMPRESSION: No acute bone abnormality. Urgent knee effusion. Consider soft tissue injury without or with internal derangement. Electronically signed Reading Physician: Mayo Lyman MD [address] [place] [address], [phone], [facility] 06/28/2020 15:08:40 Xr, Hand : OBSERVATION: CLINICAL HISTORY: Right distal metacarpal pain. TECHNIQUE: Three views of the right hand obtained. COMPARISON: None. FINDINGS: There is no acute fracture, subluxation, or dislocation. The soft tissues are unremarkable. The joint spaces are preserved. There is a 2 mm intraosseous cyst adjacent in the proximal phalanx of the fourth digit adjacent to the PIP joint. There is mild osteophytic spurring at the DIP joints of the second and third digits. IMPRESSION: No acute bone abnormality. Mild degenerative changes separate from the area of pain. Electronically signed Reading Physician: Mayo Lyman MD [address] [place] [address], [phone], [facility] 06/28/2020 15:08:40 Mammo, Screening, Tomosynthesis, Bilateral : OBSERVATION: CLINICAL HISTORY: Screening. TECHNIQUE: 3D mammography (tomosynthesis) and 2D mammography (C-view) images are generated. Images reviewed with a CAD system. COMPARISON: Prior mammograms through 07/23/2011. FINDINGS: The breast parenchyma is composed of scattered areas of fibroglandular density. There are no suspicious masses. There are no suspicious microcalcifications. The breast architecture is normal. There has been no significant change compared to the prior study. IMPRESSION: No mammographic evidence of malignancy. Regular mammographic screening recommended. The patient was entered into a reminder system with a target date for the next mammogram. Breast density: B. There are scattered areas of fibroglandular density. BIRADS: 1, NEGATIVE Electronically signed Reading Physician: Mayo Blount MA [facility] 09/16/2020 07:57:19 Mammo, Screening, Tomosynthesis, Bilateral : MAMMO, SCREEN, ANGEL, BILAT: 12/25/2024. BI-RADS: 1 CLINICAL: 59-year old Female for Bilateral Screening Mammogram. Tyrer-Cuzick lifetime risk of 5.3%. No personal or first-degree family history of breast cancer. The patient reports pain (6 months) in both breasts. PRIOR EXAMS: Reviewed previous images from 2019. MAMMOGRAPHY TECHNIQUE: 3D mammography (tomosynthesis) and 2D mammography (C-view) images are generated. Images reviewed with a CAD system. DENSITY B. There are scattered areas of fibroglandular density. MAMMOGRAPHY FINDINGS Bilateral: No suspicious mass, asymmetry, microcalcification, or other abnormality seen. CONCLUSION * No evidence of malignancy. RECOMMENDATIONS Bilateral * Annual screening mammography. ADMINISTRATIVE: A lay summary was mailed to your patient indicating the results and recommendations for follow-up. OVERALL ASSESSMENT CATEGORY BI-RADS-1: Negative. The [employer] recommends annual screening mammography beginning at age 40 for women with average risk of breast cancer. ELECTRONICALLY SIGNED: Sintia Alvarez M.D. on 12/26/2024 at 10:56:57 AM Reading Phys[facility]26/[facility]24 11:03:33 Problems Name Problem SNOMED Code Status Onset Date Resolution Date Notes Provider Name and Address Organization Details Recorded Time [employer] 82341737 Active Not Available [facility] 3 03:15:33 Low back pain 675097336 Active Not Available [facility] 3 03:15:33 Disorder of trunk 003628060 Completed 07/25/2013 Not Available [facility] 3 02:03:41 Chest pain 89418220 Completed 07/25/2013 Not Available [facility] 3 02:01:46 Upper chest pain 916617552 Completed 201509/10/2020 Karely Hubbard PA-C [address] [place] [address], , [facility] 1 08:42:45 Palpitat ions 09939377 Active 2017 Loraine Davila NP [address] [place] [address], , [facility] 8 08:34:09 Migraine 06715627 Active 2019 Loraine Davila NP [address] [place] [address], , [facility] 0 15:14:58 Pain in right knee Active 2019 likely meniscus tear, starting PT Karely Hubbard PA-C [address] [place] [address], , [facility] 0 09:31:22 Lumbar radiculo jo 438896006 Active 2019 s/p discecto my x2, gabapent in, PS&S Karely Hubbard PA-C [address] [place] [address], , [facility] 0 09:31:42 Obesity 388117454 Active 2020 Karely Hubbard PA-C [address] [place] [address], , [facility] 1 08:41:16 Rupture of medial collater al ligament of knee 624022894 Active 2020 Karely Hubbard PA-C [address] [place] [address], , [facility] 1 08:42:33 Tear of medial meniscus of knee 929047502 Active 2020 Karely Hubbard PA-C [address] [place] [address], [phone] , [facility] 1 08:42:41 Dry eyes 714788589 Active 2020 Karely Hubbard PA-C [address] [place] [address], [phone] , [facility] 1 09:03:30 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 Procedures Surgical History Date Name Laterality Status Provider Name and Address Organization Details Recorded Time 1 prevention-car diovascular risk reduction counseling completed [facility] 09/09/2020 16:19:59 1 prevention-ronna ual alcohol misuse screening completed [facility] 09/09/2020 16:19:59 0 prevention-car diovascular risk reduction counseling completed Vinnie Bennett [facility] 04/15/2020 08:32:45 0 prevention-ronna ual alcohol misuse screening completed Vinnie Bennett [facility] 04/15/2020 08:32:45 2 Treatment and Advice completed Sintia Cano Mph, LPT [address] [place] [address], [phone], [facility] 04/14/2012 13:39:55 2 Treatment and Advice completed Sintia Cano Mph, LPT [address] [place] [address], [phone], [facility] 04/10/2012 14:11:17 Back Surgery completed Not Available 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 Procedure Notes None recorded. Medical Equipment None Reported. Allergies Allergen ID Allergen Name Allergen Category Reaction Reaction Severity Criticality Documentation Date Start Date Code Code System Note Provider Name and Address Organization Details Recorded Time 562776 honey bee venom environme nt anaphylax is Not available Not available 12/12/2013 40543 7 RxNorm and all kinds of bees [facility] 4 08:41:03 94288 Product containin g penicilli n (product) medicatio n hives Not available Not available 06/15/2011 53284 8001 SNOMED Not Available [facility] 1 06:05:41 Medications Name Sig Start Date Stop Date Status Note LastModified by Organization Details LastModified Time diclofena c 3% / baclofen 2% / gabapenti n 6% / bupivacai ne hcl 1% Apply 1-3 grams to the affected area 3-4 times daily (LEFT ANKLE) 03/22 completed Not Available Not Available Not Available prednison e 10 mg tablet Take 5 tablets every day by oral route for 7 days. 03/22 completed Not Available Not Available Not Available gabapenti n 600 mg tablet 03/22 completed Not taking Not Available Not Available Not Available ketoconaz ole 2 % shampoo APPLY TO AFFECTED AREA, LATHER AND LEAVE IN FOR 5 MINUTES AND THEN RINSE OFF WITH WATER ONCE DAILY. 07/13 completed Not Available Not Available Not Available azithromy cesario 250 mg tablet TAKE 2 TABLETS BY MOUTH ONCE DAILY FOR 1 DAY THEN 1 TABLET ONCE DAILY FOR 4 DAYS 11/09 completed Not Available Not Available Not Available ibuprofen 800 mg tablet Take 1 tablet 3 times a day by oral route with meals for 14 days. 04/21 completed Not Available Not Available Not Available fluconazo le 150 mg tablet 04/02 completed Not Available Not Available Not Available hydrocodo ne 5 mg-acetam inophen 325 mg tablet TAKE 1 TO 2 TABLETS BY MOUTH EVERY 6 HOURS NEEDED FOR PAIN. MAY REQUEST PARTIAL FILL 03/22 completed Not taking Not Available Not Available Not Available ondansetr on HCl 8 mg tablet Take 1 tablet every 8 hours by oral route for 5 days. 12/18 completed Not Available Not Available Not Available ondansetr on HCl 4 mg tablet 09/10 completed Not Available Not Available Not Available prednison e 20 mg tablet TAKE 1 TABLET BY MOUTH DAILY FOR 5 DAYS 10/26 completed Not Available Not Available Not Available metronida zole 500 mg tablet TAKE 1 TABLET BY MOUTH THREE TIMES A DAY FOR 7 DAYS 03/22 completed Not Available Not Available Not Available ciproflox acin 500 mg tablet TAKE 1 TABLET BY MOUTH EVERY 12 HOURS FOR 7 DAYS 03/22 completed Not Available Not Available Not Available triamcino lone acetonide 0.1 % topical cream APPLY A THIN LAYER TO THE AFFECTED AREA 2 TIMES A DAY 02/19 completed Not Available Not Available Not Available oxycodone -acetamin ophen 5 mg-325 mg tablet Take 1 tablet every 6 hours by oral route. 06/23 completed Pt not taking 05/02/20 NMT Not Available Not Available Not Available Soma 350 mg tablet Take 1 tablet every 4-6 hours by oral route. active # 30 [facility] Not Available Not Available Not Available benzonata te 100 mg capsule TAKE 1 CAPSULE BY MOUTH THREE TIMES A DAY IF NEEDED FOR 10 DAYS 11/09 completed Not Available Not Available Not Available cephalexi n 500 mg capsule Twice a dayfor a week 12/23 completed Not Available Not Available Not Available Guaifenes in AC 10 mg-100 mg/5 mL oral liquid TAKE 10 ML (2 TEASPOON SFUL) BY MOUTH THREE TIMES A DAY IF NEEDED FOR 7 DAYS 11/09 completed Not Available Not Available Not Available prednison e 50 mg tablet 09/10 completed Pt not taking currentl y 05/02/20 NMT Not Available Not Available Not Available promethaz ine 25 mg tablet 04/15 completed PRN Not Available Not Available Not Available brimonidi ne 0.2 % eye drops INSTILL 1 DROP IN BOTH EYES TWICE DAILY 03/22 completed Not Available Not Available Not Available nystatin- triamcino lone 100,000 unit/g-0. 1 % topical cream APPLY TO THE AFFECTED AREA (S) TOPICALL Y TWICE A DAY IN THE MORNING AND THE EVENING 07/13 completed Not Available Not Available Not Available gabapenti n 300 mg capsule TK 1 C PO TID 09/10 completed Not Available Not Available Not Available diclofena c sodium 75 mg tablet,de layed release Take 1 tablet twice a day by oral route. 2011 active Pt states this med was not helping with the pain Not Available Not Available Not Available epinephri ne 0.3 mg/0.3 mL injection , auto-inje ctor USE DIRECTED BY PRESCRIB ER 03/22 completed Not Available Not Available Not Available cefuroxim e axetil 500 mg tablet 04/02 completed Not Available Not Available Not Available cefdinir 300 mg capsule 12/23 completed Not Available Not Available Not Available metoclopr amide 10 mg tablet 03/22 completed Not Available Not Available Not Available oxycodone 5 mg tablet TK 1 TO 2 TS PO Q 6 TO 8 H PRF PAIN. MAY REQUEST PARTIAL FILL 03/22 completed Not taking Not Available Not Available Not Available Laxative (bisacody l) 10 mg rectal supposito ry INSERT 1 SUPPOSIT ORY RECTALLY ONCE DAILY IF NEEDED FOR CONSTIPA TION WHILE ON PAIN MEDICATI ONS active Not Available Not Available No t Available cyclobenz aprine 5 mg tablet TAKE 1 TABLET BY MOUTH 3 TIMES DAILY NEEDED 04/15 completed Not Available Not Available Not Available Doc-Q-Lax 8.6 mg-50 mg tablet TAKE 1 TO 2 TABLETS BY MOUTH TWICE A DAY WHILE ON PERCOCET active Not Available Not Available No t Available nitrofura ntoin monohydra te/macroc rystals 100 mg capsule TAKE 1 CAPSULE BY MOUTH TWICE DAILY FOR 7 DAYS active Not Available Not Available No t Available Nyamyc 100,000 unit/gram topical powder APPLY TO THE AFFECTED AREA TOPICALL Y 2 TIMES A DAY 07/13 completed Not Available Not Available Not Available peg 3350-elec trolytes 236 gram-22.7 4 gram-6.74 gram-5.86 gram solution MIX AND DRINK DIRECTED 09/10 completed Not Available Not Available Not Available Estroven Mood and Memory 1 PO QD 05/17 completed Not Available Not Available Not Available Xiidra 5 % eye drops in a dropperet te INSTILL 1 DROP INTO BOTH EYES TWICE DAILY 03/22 completed Not Available Not Available Not Available Vitals Date Recorded Body height Body mass index (BMI) Body weight Heart rate Provider Name and Address Organization Details Last Updated DateTime 09/10/2020 168.91 cm 32.8 kg/m2 26710.03 g 64 /min Carmen Mine, [facility] 09/10/2020 08:39:41 Date Recorded Body height Body temperature Body mass index (BMI) Body weight Heart rate Provider Name and Address Organization Details Last Updated DateTime 11/13/2020 168.91 cm 97.5 [degF] 32.6 kg/m2 04036.44 g 65 /min Maeve calles, [facility] 12:46:05 Date Recorded Body height Heart rate Provider Name and Address Organization Details Last Updated DateTime 2020 168.91 cm 80 /min Maeve Henson, [facility] 2020 15:33:17 Date Recorded Body height Body mass index (BMI) Body weight Heart rate Provider Name and Address Organization Details Last Updated DateTime 06/23/2020 168.91 cm 32.6 kg/m2 77183.44 g 73 /min Colette Joaquin [facility] 06/23/2020 16:50:45 Social History Question Answer Notes LastModified by Organizat ion Details LastModified Time Tobacco Smoking Status Never Smoker Not Available [facility] 07/22/2011 05:02:19 What Is Your Level Of Caffeine Consumption? Moderate 2-3 Daily Information not available 06/15/2011 What Type Of Diet Are You Following? REGULAR 17 Information not available 07/22/2011 How Many Days In The Past Year Have You Had A Heavy Drinking Consumption (4+ Female, 5+ Male)? 1 [email or web address] Information not available 12/12/2013 Are There Any Guns Present In Your Home? No 17 Information not available 07/22/2011 Live Alone Or With Others? With Others Spouse, Dtr, 2 Dogs, 4 Horses Information not available 12/23/2017 Patient Has Health Care Proxy Signed And In Chart Yes [email or web address] Information not available 08/23/2018 Marital Status Steven Informatio n not available 12/23/2017 What Was The Date Of Your Most Recent Tobacco Screening? 09/10/2020 [email or web address] Information not available 09/10/2020 How Many Children Do You Have? 2 1990, 2001 Information not available 06/15/2011 Seat Belts Used Routinely Yes 17 Information not available 07/22/2011 Smoke Alarm In Home Yes 17 Information not available 07/22/2011 How Much Tobacco Do You Smoke? No [email or web address] Information not available 09/10/2020 General Stress Level Medium Information not available 07/23/2011 How Many Years Have You Smoked Tobacco? 0 Information not available 09/10/2020 Sex: Unknown Functional Status Question Answer Note LastModified by Organizat ion Details LastModified Time What is your level of alcohol consumption? Occasional [email or web address] Information not available 03/28/2017 Do you or have you ever used smokeless tobacco? 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 Never used electronic cigarettes Information not available 06/23/2020 Mental Status None recorded. Family History Relationship Description Onset Age of this Age Resolved Age Notes LastModified by Organization Details LastModified Time Mother Heart disease murmur [email or web address] Not available 2013 09:22:02 Mother Hypertensive disorder jfein[place] Not available 2013 09:22:02 Brother Hypertensive disorder DVT jfein[place] Not available 2013 09:22:02 Paternal Grandfather Heart disease Bypass jfein[place] Not available 2013 09:22:02 Paternal Grandfather Malignant tumor of colon 83 previo usly record ed as Cancer - Colon jfein[place] Not available 12/12/2013 09:22:02 Brother Hypertensive disorder jfeinland Not available 2013 09:22:02 Brother Malignant neoplasm of lung Not available 2015 11:32:10 Medical History Condition Response Diverticulitis Y Depression Y Gynecological HistoryNo gynecological history recorded. Obstetrics History GPAL:G 0 P 0 0 0 0 Immunizations Vaccine Type Date Status Note Provider Nam e and Address Organization Details Recorded Time Influenza, split virus, trivalent, preservative 1 completed Not Available [facility] 09/22/2019 02:35:39 Influenza, split virus, trivalent, preservative 2 completed Not Available [facility] 09/22/2019 02:34:14 Tdap 8 completed Not Available [facility] 04/24/2020 17:59:49 Td(adult) unspecified formulation 4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
== END 2025-03-11 10:19 | disposition home or self-care (01) ==
LOC: HO.XRAY 10:18
PROVIDERS: PCP Nurse Practitioner Family; Visit Provider Nurse Practitioner Family
DX: R10.9 Unspecified abdominal pain (principal); R15.9 Full incontinence of feces
CPT/HCPCS: 74018

== ENCOUNTER → 2025-03-11 10:35 | Outpatient (BNV) | payer BC, SELFPAY | PROVIDERS: PCP Nurse Practitioner Family; Visit Provider Radiology Diagnostic Radiology | DX: R10.9 Unspecified abdominal pain (principal) | CPT/HCPCS: 74018 ==

== ENCOUNTER 2025-03-28 07:23 | Outpatient (REF) | payer BC, SELFPAY ==
--- NOTE | ~2025-03-28 | CT_ITS ---
CLINICAL HISTORY: ABDOMINAL PAIN CT abdomen and pelvis with contrast Comparison: CR/SR - XR ABDOMEN 1 VIEW (KUB) - 03/11/25 10:45 EDT Findings: The lung bases are clear. Multiple small hepatic cysts. Gallbladder, pancreas, spleen, and adrenal glands are within normal limits. No hydronephrosis. Symmetric contrast enhancement of the kidneys. Colonic diverticulosis without acute inflammation. No bowel obstruction, pneumatosis or pneumoperitoneum. Pelvic contents unremarkable. Normal appendix. Degenerative disc disease at L4-L5 and L5-S1. No acute fracture. IMPRESSION: 1. No acute intraabdominal or pelvic pathology. This document has been electronically signed by: Ann Wilkerson MD on 03/28/2025 20:01:33
--- OUTSIDE RECORDS SUMMARY | 2025-03-28 07:26 | XMS_ITS | Encounter Summary ---
Author Organization [facility] Address [address] [place] [address] Drive [address] [place] [phone] Phone Care Team Providers Care Scaffold Builder Name Role Phone Unknown, Unknown Primary Care Provider Ramesh Lincoln MD Primary Care Provider [phone] Brissa Benton MD Primary Care Provider [phone] Jesus Perez MD Unavailable Aman Gramajo OD Unavailable [phone] Brissa Benton MD Primary Care Provider [phone] Encounter Details Date Type Department Care Team (Late st Contact Info) Description 09/08/2018 Ancillary Orders Virtual Department [address] [place] [id number] Loraine Davila, GRILL CHEF [address] [place] [address] [phone] Chest pain, unspecified type Social History Tobacco Use Types Packs/Day Years Used Date Smoking Tobacco: Never Assessed Comments Unknown Sex and Gender Information Value Date Recorded Sex Assigned at Female 10/22/2019 8:11 PM EST Legal Sex Female 9:42 PM EDT Gender Identity Female 10/22/2019 8:11 PM EST Sexual Orientation Straight 10/22/2019 8: 11 PM EST documented as of this encounter Plan of Treatment Upcoming Encounters Date Type Department Care Team (Late st Contact Info) Description 04/16/2025 Procedure Pass [facility]oscopy Admitting Dept Virtual Department [address] [place] [phone] 04/16/2025 9:00 AM EDT Hospital Encounter [facility] Admitting [facility] Virtual Department [address] [place] [phone] Russell Toro MD [address] [place] [phone] 04/16/2025 9:00 AM EDT - 04/16/2025 9:30 AM EDT Surgery [facility]oscopy Admitting Dept Virtual Department [address] [place] [phone] Russell Toro MD [address] [place] [id number] COLONOSCOPY 02/03/2026 11:30 AM EDT Office Visit [facility] in [address] [address] Mayito Munoz MD, PhD [address] [place] [address] 02/03/2026 11:45 AM EDT Procedure visit [facility] in [address] [id number] Scheduled Procedures Name Priority Associated Diagnoses Date/Ti me COLONOSCOPY colon 04/16/2025 9:00 AM EDT documented as of this encounter Visit Diagnoses Diagnosis Chest pain, unspecified type documented in this encounter Additional Health Concerns Infection Onset Date Last Indicated Resolved Time CoV-Risk 08/18/2023 08/18/2023 08/29/2023 1:22 AM EST documented as of this encounter Care Teams Scaffold Builder Relationship Specialty Start Date End Date Unknown, Unknown, MD PCP - General 02/15/19 02/15/19 Ramesh Lyman MD PCP - General Family Medicine 02/16/19 11/25/20 Brissa Benton MD PCP - General Internal Medicine 11/26/20 12/21/24 Brissa Benton MD [address] [place] [id number] PCP - General Internal Medicine 12/22/24 Jesus Perez MD Ophthalmology 04/09/21 Aman Gramajo OD [address] [place] [address] [address] [place] [address] Optometry 10/21/21 documented as of this encounter Additional Source Comments The information contained in this document represents components of the legal health record. It is not the complete legal health record.[facility]
--- OUTSIDE RECORDS SUMMARY | 2025-03-28 07:26 | XMS_ITS | Data Portability ---
Author Organization [facility], , [facility] Address [address] [place] [address] Assessment Encounter Date Assessment Date Assessment LastModified by Organization Details LastModified Time 06/23/2020 06/23/2020 Patient agreed to this visit via a secure telehealth platform due to the COVID -19 pandemic. Patient understands this is a scheduled visit and the usual procedures with regard to billing and confidentialit y apply. Patient was notified that the provider location is [facility] [place] Patient location: home During the visit the [...] was notified that the provider location is [place] Patient location: home During the visit the patient s medical history and medical record were reviewed. The patient was notified to call our office for worsening or urgent symptoms. [email or web address] Not available 09/10/2020 09:07:31 Plan of Treatment Reminders Order Date Submit Date Provider Last Modified By Organization Details Last Modified Time Details Appointments None recorded. Lab C3 + C4 (complement ), serum 2020 021 [facility], [address] [place], [address], 11:56:04 sjogren antibody panel (ssa, ssb, ro, la), serum 2020 021 [facility], [address] [place] [address], [address], 13:34:11 [id number] Ab, serum 2020 021 [facility], [address] [place] [address], [address], 1 14:22:17 protein electrophor esis panel, serum or plasma 2020 021 [facility], [address] [place] [address], [address], 1 17:06:02 [id number]-[id number] genotype, blood 2020 021 [facility], [address] [place] [address], [address], 1 14:22:17 erythrocyte sedimentati on rate by westergren method 2020 021 [facility], [address] [place] [address], [address], 1 12:05:15 C-reactive protein, quantitativ e, serum or plasma 2020 021 [facility], [address] [place] [address], [address], 12:21:58 BMP, serum or plasma 2020 021 [facility], [address] [place] [address], [address], 1 13:56:40 lipid panel, serum 2020 021 [facility], [address] [place] [address], [address], 1 13:56:40 TSH, serum or plasma 2020 021 [facility], [address] [place] [address], [address], 1 16:03:05 C-reactive protein, quantitativ e, serum or plasma 2019 [facility], [address] [place] [address], [address], 1 16:12:50 ESR (erythrocyt e sedimentati on rate), blood 2019 [facility], [address] [place] [address], [address], 1 14:45:29 rf (rheumatoid factor), serum 2019 [facility], [address] [place] [address], [address], 1 22:27:33 ANGELICA (antinuclea r antibodies) screen, ifa, serum 2019 [facility], [address] [place] [address], [address], 1 22:27:33 ccp (cyclic citrullinat ed peptide) igg, serum 2019 [facility], [address] [place] [address], [address], 1 22:27:35 lyme disease igg+igm Ab, serum 2019 [facility], [address] [place] [address], [address], 1 22:27:34 uric acid, serum or plasma 2019 [facility], [address] [place] [address], [address], 16:12:49 Referral orthopedic referral 2019 LEORA Not available 05:06:32 Procedures colonoscopy procedure (PROC) 2019 codillee 1 [facility], [address] [place], [address], 0 12:27:31 Surgeries None recorded. Imaging XR, knee - R knee pain after fall 02/2020 [facility] (Imaging), [address] [place], [address], 0 08:56:44 XR, hand 2019 [facility] ([facility]), [address] [place], [address], 0 09:01:08 Medication Orders None recorded. Patient TargetsNo targets recorded. Patient Instructions Encounter Date Encounter Id Patient Instructions Last Modified By Organization Details Last Modified Time 06/23/2020 [id number] rec: haelthier diet- for hand joints. see dr martinez and get labs for inflammatory arhtropathy and knee x-ray [facility] Not available 06/23/2020 17:26:51 09/10/2020 [id number] well visit, wome n 50 to 65: care instructions [email or web address] Not available 09/10/2020 09:06:59 - can schedule for in office visit for pap smear once recovered from surgery Not available 09/10/2020 09:07:13 Reason for Referral Orthopedic Referral for Pain in right knee Referring Physician: Fran Lyman, Family Medicine, Encounter Date: 06/23/2020 Results Created Date Observation Date Name Description Value Unit Range Abnormal Flag Note LastModifiedBy Organization Detail LastModifiedTime 09/01/20 20 09/01/2020 staph yloco ccus sp, cultu re, unspe cifie d speci men special requests None Not Available [facility] (Out[facility]) [address] [place], [address], 09/03/2020 12:01:36 09/01/20 20 09/02/2020 staph yloco ccus sp, cultu re, unspe cifie d speci men MRSA/mssa pre-op cult No MRSA or MSSA isolat ed Not Available [facility] (Outpatient) [address] [place], [address], 09/03/2020 12:01:36 09/10/19 21 09/10/2020 BMP, serum or plasm a glucose 85 mg/dL 70-100 Not Available [address], [address], 09/10/2020 13:56:39 09/10/19 21 09/10/2020 BMP, serum or plasm a BUN 24 mg/dL 7-18 high Not Available [address], [address], 09/10/2020 13:56:39 09/10/19 21 09/10/2020 BMP, serum or plasm a creatinine 0.9 mg/dL 0.8-1. 3 Not Available [address], [address], 09/10/2020 13:56:39 09/10/19 21 09/10/2020 BMP, serum or plasm a B/C 26.7 ratio Not Available [address], [address], 09/10/2020 13:56:39 09/10/19 21 09/10/2020 BMP, serum or plasm a GFR -non 72.8 mL/mi n Recom elmer d GFR by the Natio nal Kidne y Found ation >60 mL/mi n/1.7 3m2 - Arely l <60 mL/mi n/1.7 3m2 - Chron ic Kidne y Disea se <15 mL/mi n/1.7 3m2 - Kidne y Failu re Not Available [address], [address], 09/10/2020 13:56:39 09/10/19 21 09/10/2020 BMP, serum or plasm a GFR - if 83.7 mL/mi n For Afric an Ameri can patie nts: Resul ts Multi plied by 1.21 Not Available [address], [address], 09/10/2020 13:56:39 09/10/19 21 09/10/2020 BMP, serum or plasm a sodium 142 mmol/ L 136-14 5 Not Available [address], [address], 09/10/2020 13:56:39 09/10/19 21 09/10/2020 BMP, serum or plasm a potassium 4.7 mmol/ L 3.5-5. 1 Not Available [address], [address], 09/10/2020 13:56:39 09/10/19 21 09/10/2020 BMP, serum or plasm a chloride 105 mmol/ L 96-107 Not Available [address], [address], 09/10/2020 13:56:39 09/10/1909/10/2020 BMP, serum or plasm a anion gap 8.9 5.0-15 .0 Not Available [address], [address], 09/10/2020 13:56:39 09/10/19 21 09/10/2020 BMP, serum or plasm a CO2 28 mmol/ L 21-32 Not Available [address], [address], 09/10/2020 13:56:39 09/10/1909/10/2020 BMP, serum or plasm a calcium 9.1 mg/dL 8.5-10 .3 Not Available [address], [address], 09/10/2020 13:56:39 09/10/1909/10/2020 lipid panel , serum cholesterol 238 mg/dL <200 mg/dl Delmy able 200-2 39 mg/dl Borde rline High >240 mg/dl High Not Available [address], [address], 09/10/2020 13:56:40 09/10/19 21 09/10/2020 lipid panel , serum triglyceride s 157 mg/dL <150 mg/dL Arely l 150-1 99 mg/dL Borde rline High 200-4 99 mg/dL High >500 mg/dL Very High Not Available [address], [address], 09/10/2020 13:56:40 09/10/19 21 09/10/2020 lipid panel , serum direct HDL 53 mg/dL <40 mg/dl - Major Risk for CHD >60 mg/dl - Negat christen Risk for CHD Not Available [address], [address], 09/10/2020 13:56:40 09/10/19 21 09/10/2020 LDL, calcu lated , serum (OBS) LDL - calculated 153.6 RISK CATEG ORY LDL GOAL _ CHD or CHD Risk Equiv alent s <100 mg/dl (10-y ear risk >20%) 2+ Risk Facto rs <130 mg/dl (10-y ear risk <= 20%) 0-1 Risk Facto r <160 mg/dl [facility] e with 0-1 risk facto r have a 10 year risk <10%, thus 10 year risk asses ment in peopl e with 0-1 risk facto r is not neces sanjay. Not Available [address], [address], 09/10/2020 13:56:41 09/10/19 21 09/10/2020 ESR (eryt hrocy te sedim entat ion rate) , blood sed rate 19.0 0.0-15 .0 high Not Available [address], [address], 09/10/2020 14:45:29 09/10/1909/10/2020 TSH, serum or plasm a TSH 1.88 uIU/m L 0.50-6 .00 The Ameri can Colle ge of Endoc rinol ogy and Ameri can Thyro id Assoc iatio n recom mend goal TSH value s ayan en 0.4-4 .0 mIU/m L. Not Available [address], [address], 09/10/2020 16:03:05 09/10/19 21 09/10/2020 uric acid, serum or plasm a uric acid 5.6 mg/dL 2.6-6. 0 Not Available [address], [address], 09/10/2020 16:12:49 09/10/19 21 09/10/2020 C-harley ctive prote in, quant itati ve, serum or plasm a C-reactive protein -quant 2.5 mg/L 0.0-9. 0 Not Available [address], [address], 09/10/2020 16:12:50 09/10/19 21 09/11/2020 rf (rheu matoi d facto r), serum rheumatoid factor <14 IU/mL <14 normal Not Available [facility] [address], [address], 09/11/2020 22:27:33 09/10/19 21 09/11/2020 ANGELICA (anti [...] ses only. ) Not Available [facility] [place] [facility] [address], [place], [address], 09/11/2020 22:27:33 09/10/19 21 09/11/2020 ANGELICA (anti nucle ar antib odies ) scree n, ifa, serum ANGELICA titer 1:40 titer high A low level ANGELICA titer may be prese nt in pre-c linic al autoi mmune disea ses and arely l indiv idual s. Refer ence Range <1:40 Negat christen 1:40- 1:80 Low Antib shirley Level >1:80 Rothschild farhana Antib shirley Level Not Available [facility] [place] [facility] [address], [address], 09/11/2020 22:27:33 09/10/19 21 09/11/2020 ANGELICA (anti [...] oi.or g/10. 1515/ ccl2017- 0052) Not Available [facility] [place] [facility] [address], [address], 09/11/2020 22:27:33 09/10/19 21 09/11/2020 ANGELICA (anti nucle ar antib odies ) scree n, ifa, serum ANGELICA titer 1:40 titer high A low level ANGELICA titer may be prese nt in pre-c linic al autoi mmune disea ses and arely l indiv idual s. Refer ence Range <1:40 Negat christen 1:40- 1:80 Low Antib shirley Level >1:80 Rothschild farhana Antib shirley Level Not Available [facility] [address], [address], 09/11/2020 22:27:33 09/10/19 21 09/11/2020 ANGELICA (anti [...] Patte rns (http s://d oi.or g/10. 1515/ [facility]- 2017- 0052) Not Available [facility] [address], [place], [address], 09/11/2020 22:27:33 09/10/19 21 09/11/2020 lyme disea [...] is appar ent. 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, respi rator y speci men covid-19 comment 14 Not Available [facility] ([facility]) [address] [place] [address], [address], 09/15/2020 15:44:57 09/15/19 21 09/15/2020 SARS CoV 2 RNA (COVI D-19) , QL, 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, respi rator y speci men covid testing status Sent to [facility] Not Available [facility]) [address] [place], [address], 09/15/2020 15:44:57 09/15/19 21 09/16/2020 SARS CoV 2 RNA (COVI D-19) , QL, 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 Not Available [facility] ([facility]) [address] [place], [address], 09/16/2020 12:53:17 09/19/19 21 09/19/2020 brady radha respi rator y viral order (pro) test ordered Rapid COVID has been ordere d Not Available [facility] ([facility]) [address] [place], [address], 09/19/2020 10:55:01 09/19/19 21 09/19/2020 brady radha respi rator y viral order (pro) specimen source NASAL Not Available [facility] ([facility]) [address] [place], [address], 09/19/2020 10:55:01 09/19/19 21 09/19/2020 brady radha [...] rizat ion can be found at the Tutee links : For Healt hcare Provi ders: https ://SilkStart.SPORTLOGiQ .gov/ media /5377 23/do wnloa d For Patie nts: https ://SilkStart.SPORTLOGiQ .gov. media /9699 24/do wnloa d. Not Available [facility] (Out[facility]) [address] [place] [address], [address], 09/19/2020 10:55:01 10/10/19 21 10/10/2020 CBC WBC 4.96 K/ L 3.98-1 0.04 Not Available [address], [address], 10/10/2020 10:35:07 10/10/19 21 10/10/2020 CBC RBC 4.19 M/ L 3.93-5 .22 Not Available [address], [address], 10/10/2020 10:35:07 10/10/19 21 10/10/2020 CBC HGB 13.3 g/dL 11.2-1 5.7 Not Available [address], [address], 10/10/2020 10:35:07 10/10/19 21 10/10/2020 CBC HCT 39.7 % 34.1-4 4.9 Not Available [address], [address], 10/10/2020 10:35:07 10/10/19 21 10/10/2020 CBC MCV 94.7 fL 79.4-9 4.8 Not Available [address], [address], 10/10/2020 10:35:07 10/10/19 21 10/10/2020 CBC MCH 31.7 pg 25.6-3 2.2 Not Available [address], [address], 10/10/2020 10:35:07 10/10/19 21 10/10/2020 CBC MCHC 33.5 g/dL 32.2-3 5.5 Not Available [address], [address], 10/10/2020 10:35:07 10/10/1910/10/2020 CBC plt 263 K/ L 182-36 9 Not Available [address], [address], 10/10/2020 10:35:07 10/10/19 21 10/10/2020 CBC MPV 9.9 fL 9.4-12 .3 Not Available [address], [address], 10/10/2020 10:35:07 10/10/1910/10/2020 CBC neut% 66.2 % 34.0-7 1.1 Not Available [address], [address], 10/10/2020 10:35:07 10/10/1910/10/2020 CBC neut# 3.28 1.56-6 .13 Not Available [address], [address], 10/10/2020 10:35:07 10/10/19 21 10/10/2020 CBC lymph % 26.0 % 19.3-5 1.7 Not Available [address], [address], 10/10/2020 10:35:07 10/10/19 21 10/10/2020 CBC lymph # 1.29 K/ L 1.18-3 .74 Not Available [address], [address], 10/10/2020 10:35:07 10/10/19 21 10/10/2020 CBC mono% 5.0 % 4.7-12 .5 Not Available [address], [address], 10/10/2020 10:35:07 10/10/19 21 10/10/2020 CBC mono# 0.25 0.24-0 .56 Not Available [address], [address], 10/10/2020 10:35:07 10/10/19 21 10/10/2020 CBC eo% 2.6 % 0.7-5. 8 Not Available [address], [address], 10/10/2020 10:35:07 10/10/19 21 10/10/2020 CBC eo# 0.13 0.04-0 .36 Not Available [address], [address], 10/10/2020 10:35:07 10/10/19 21 10/10/2020 CBC baso% 0.2 % 0.1-1. 2 Not Available [address], [address], 10/10/2020 10:35:07 10/10/19 21 10/10/2020 CBC baso# 0.01 0.00-0 .08 Not Available [address], [address], 10/10/2020 10:35:07 10/10/19 21 10/10/2020 CBC RDW-CV 12.6 % 11.7-1 4.4 Not Available [address], [address], 10/10/2020 10:35:07 10/10/19 21 10/10/2020 CBC Ig% 0.000 % 0.000- 1.500 Ig % >0.5 Indic ates possi ble Left Shift Not Available [address], [address], 10/10/2020 10:35:07 10/10/19 21 10/10/2020 CBC Ig# 0.000 0.000- 0.093 Not Available [address], [address], 10/10/2020 10:35:07 10/10/19 21 10/10/2020 CBC NRBC% 0.0 % 0.0-0. 2 Not Available [address], [address], 10/10/2020 10:35:07 10/10/19 21 10/10/2020 CBC NRBC# 0.000 0.000- 0.012 Not Available [address], [address], 10/10/2020 10:35:07 10/10/19 21 10/10/2020 PT/IN R PT 9.9 secon ds 9.0-10 .4 Not Available [address], [address], 10/10/2020 10:57:35 10/10/19 21 10/10/2020 PT/IN R INR 1.0 0.9-1. 1 Sugge sted Value of 2.0-3 .0 for proph ylaxi s of Venou s Thomb osis, and preve ntion of Embol ism. Sugge sted Value of 2.5-3 .5 for preve ntion of Recur rent Embol ism or patie nts with Mecha nical Prost hetic Heart Valve s. Not Available [address], [address], 10/10/2020 10:57:35 10/10/19 21 10/10/2020 activ ated parti al throm bopla stin time, coagu latio n assay , blood PTT 25 secon ds 23-31 Not Available [address], [place], [address], 10/10/2020 10:57:36 10/10/19 21 10/14/2020 homoc ystei [...] expos ure to nitro us oxide . Rbuy Peraza, et al., Ronna Inter n Med. 1999; 131(5 ):331 -9. Not Available [facility] [address], [address], 10/14/2020 11:31:23 10/10/19 21 10/14/2020 prote in S activ ity, plasm a protein S, activity 111 %_nor mal 60-140 normal Not Available [facility] [address], [place], [address], 10/14/2020 11:31:24 10/10/19 21 10/14/2020 prote in C activ ity, plasm a protein C, activity 180 %_nor mal 70-180 normal Not Available [facility] [address], [address], 10/14/2020 11:31:25 10/10/19 21 10/15/2020 quant ifero n(R)- TB gold plus, 1 tube quantiferon( R)-TB gold plus, 1 tube NEGATI VE negati ve normal Negat christen test resul t. M. tuber yogios is compl ex infec tion unlik naseem. Not Available [facility] [address], [address], 10/15/2020 11:31:27 10/10/19 21 10/15/2020 quant ifero n(R)- TB gold plus, 1 tube nil 0.07 IU/mL normal Not Available [facility] [address], [address], 10/15/2020 11:31:27 10/10/19 21 10/15/2020 quant ifero n(R)- TB gold plus, 1 tube mitogen-nil >10.00 IU/mL normal Not Available [facility] [address], [address], 10/15/2020 11:31:27 10/10/19 21 10/15/2020 quant ifero n(R)- TB gold plus, 1 tube TB1-nil 0.00 IU/mL normal Not Available [facility] [address], [address], 10/15/2020 11:31:27 10/10/19 21 10/15/2020 quant ifero [...] wright e refer to https ://ed ucati on.Ligandal/f aq/FA Q204 (This link is being provi ded for infor irma strange/ mark webster purpo ses only. ) Not Available [facility] [address], [address], 10/15/2020 11:31:27 10/10/19 21 10/15/2020 C3 + C4 (comp lemen t), serum complement component C3C 75 mg/dL 83-193 low Not Available [facility] [address], [address], 10/15/2020 11:31:32 10/10/19 21 10/15/2020 C3 + C4 (comp lemen t), serum complement component C4C 12 mg/dL 15-57 low Not Available [facility] [address], [address], 10/15/2020 11:31:32 10/10/19 21 10/15/2020 antip hosph [...] thera py or aging . Not Available [facility] [address], [address], 10/15/2020 11:31:32 10/10/19 21 10/15/2020 antip hosph olipi d antib shirley panel , serum B2 glycoprotein I (IgG)Ab <9 sgu <=20 Not Available [facility] [address], [address], 10/15/2020 11:31:32 10/10/19 21 10/15/2020 antip hosph olipi d antib shirley panel , serum B2 glycoprotein I (IgA)Ab <9 julia <=20 Not Available [facility] [address], [address], 10/15/2020 11:31:32 10/10/19 21 10/15/2020 antip hosph olipi d antib shirley panel , serum B2 glycoprotein I (IgM)Ab <9 smu <=20 Not Available [facility] [address], [address], 10/15/2020 11:31:32 10/10/19 21 10/15/2020 antip hosph [...] for throm bosis Not Available [facility] [place] [facility] [address], [place], [address], 10/15/2020 11:31:32 10/10/19 21 10/15/2020 antip hosph [...] bosis and pregn radha loss. Not Available [facility] [address], [place], [address], 10/15/2020 11:31:32 10/10/19 21 10/15/2020 antip hosph [...] facto r for throm bosis Not Available [facility] [address], [place], [address], 10/15/2020 11:31:32 10/10/19 21 10/15/2020 antip hosph [...] > 80 High Posit christen Not Available [facility] [address], [address], 10/15/2020 11:31:32 10/10/19 21 10/15/2020 antip hosph [...] > 80 High Posit christen Not Available [facility] [address], [address], 10/15/2020 11:31:32 10/10/1910/15/2020 antip hosph olipi d [...] > 80 High Posit christen Not Available [facility] [address], [address], 10/15/2020 11:31:32 10/10/19 21 10/15/2020 dsDNA Ab, serum DNA (ds) antibody <1 IU/mL normal IU/mL Inter preta tion < or = 4 Negat christen 5-9 Indet ermin ate > or = 10 Posit christen Not Available [facility] [address], [address], 10/15/2020 11:31:33 10/10/19 21 10/15/2020 ccp (cycl ic citru llina farhana pepti de) igg, serum cyclic citrullinate d peptide (ccp) Ab (IgG) <16 units normal Refer ence Range Negat christen: <20 Weak Posit christen: 20-39 Moder ate Posit christen: 40-59 Stron g Posit christen: >59 Not Available [facility] [address], [address], 10/15/2020 11:31:34 10/10/19 21 10/15/2020 reardon Ab + christmas tree farm manager Ab, serum sm antibody <1.0 NEG ai <1.0 neg normal Not Available [facility] [address], [address], 10/15/2020 11:31:35 10/10/19 21 10/15/2020 reardon Ab + christmas tree farm manager Ab, serum sm/christmas tree farm manager antibody <1.0 NEG ai <1.0 neg normal Not Available [facility] [address], [address], 10/15/2020 11:31:35 10/10/19 21 10/16/2020 RPR (rapi d plasm a reagi n), serum RPR NON-RE ACTIVE nonrea ctive Not Available [address], [address], 10/16/2020 14:01:15 11/11/19 21 11/11/2020 P-anc a, [...] in activ e disea se. Not Available [facility] [place] [facility] [address], [place], [address], 11/11/2020 13:57:01 11/11/19 21 11/11/2020 P-anc a, serum proteinase-3 antibody <1.0 ai normal Value Inter preta tion ----- ----- ----- ---- <1.0 No Antib shirley Detec farhana > or = 1.0 Antib shirley Detec farhana Autoa ntibo dies to prote inase -3 (WV-3 ) are accep farhana as satish cteri stic for granu lomat osis with polya ngiit is (Hank DAVIS er's) , and are detec table in 95% of the histo logic ally prove n cases . The cytop lasmi sky sinclair rn, (c-AN CA), is based large ly on autoa ntibo dy to WV-3 which serve s as the prima ry antig en. These autoa ntibo dies are prese nt in activ e disea se. Not Available [facility] [place] [facility] [address], [place], [address], 11/11/2020 13:57:01 11/11/19 21 11/13/2020 RPR (rapi d plasm a reagi n), serum RPR NON-RE ACTIVE nonrea ctive Not Available [facility] [address], [place], [address], 11/13/2020 14:02:56 11/16/19 21 11/15/2020 eryth rocyt e sedim entat ion rate by eryn thrasher d ESR 9 mm/h 0-30 Not Available [facility] [address] [place], [address], 11/15/2020 12:05:15 11/16/19 21 11/15/2020 C-harley ctive prote in, quant itati ve, serum or plasm a C reactive protein 5.2 mg/L 0.0-4. 0 high Not Available [facility] [address] [place], [address], 11/15/2020 12:21:58 11/16/19 21 11/15/2020 lfts (hepa tic panel ) alkaline phosphatase 92 U/L 39-117 Not Available [facility] ([facility]) [address] [place], [address], 11/15/2020 12:22:01 11/16/19 21 11/15/2020 lfts (hepa tic panel ) total bilirubin 0.5 mg/dL 0.0-1. 2 Not Available [facility] ([facility] [address] [place], [address], 11/15/2020 12:22:01 11/16/19 21 11/15/2020 lfts (hepa tic panel ) direct bilirubin <0.2 mg/dL 0-0.3 Not Available [facility] (Outpatient) [address] [place], [address], 11/15/2020 12:22:01 11/16/19 21 11/15/2020 lfts (hepa tic panel ) bilirubin (indirect) NOT CALCUL ATED mg/dL 0-1.5 Not Available [facility] (Outpatient) [address] [place], [address], 11/15/2020 12:22:01 11/16/19 21 11/15/2020 lfts (hepa tic panel ) AST 16 U/L 0-37 Not Available [facility] (Outpatient) [address] [place], [address], 11/15/2020 12:22:01 11/16/19 21 11/15/2020 lfts (hepa tic panel ) ALT 11 U/L 0-40 Not Available [facility] (Outpatient) [address] [place], [address], 11/15/2020 12:22:01 11/16/19 21 11/15/2020 lfts (hepa tic panel ) total protein 6.8 g/dL 6.5-8. 0 Not Available [facility] (Outpatient) [address] [place], [address], 11/15/2020 12:22:01 11/16/19 21 11/15/2020 lfts (hepa tic panel ) albumin 4.0 g/dL 3.9-4. 8 Not Available [facility] (Outpatient) [address] [place], [address], 11/15/2020 12:22:01 11/16/19 21 11/15/2020 lfts (hepa tic panel ) globulin 2.8 g/dL 1-4.8 Not Available [facility] (Outpatient) [address] [place], [address], 11/15/2020 12:22:01 11/16/19 21 11/15/2020 lfts (hepa tic panel ) A/G ratio 1.43 ratio 1.00-4 .80 Not Available [facility] (Outpatient) [address] [place], [address], 11/15/2020 12:22:01 11/16/19 21 11/17/2020 C3 (comp lemen t), serum or plasm a C3 116 mg/dL 81-157 Not Available [facility] (Outpatient) [address] [place] [address], [address], 11/17/2020 11:13:58 11/16/19 21 11/17/2020 C4 (comp lemen t), serum or plasm a C4 22 mg/dL 12-39 Not Available [facility] (Outpatient) [address] [place] [address], [address], 11/17/2020 11:13:59 11/16/19 21 11/17/2020 ANGELICA (anti nucle ar antib odies ) scree n, serum ANGELICA screen on hep 2 POSITI VE negati ve abnormal An ANGELICA Titer has been refle xed. The resul ctarina smith Not Available [facility] (Outpatient) [address] [place] [address], [address], 11/17/2020 14:49:19 11/16/19 21 11/18/2020 hla-B 27, blood hla-B27 result NEGATI VE not applic able Not Available [facility] (Outpatient) [address] [place] [address], [address], 11/18/2020 15:49:46 11/16/1911/18/2020 hla-B 27, blood interpretati on SEE NOTE (NOTE ) HLA-B 27 antig en was not detec farhana. ----- ----- ----- ----A DDITI ONAL INFOR MATIO N---- ----- ----- ----- Metho d: Flow Cytom etry CLIA: [id number] CLIA Lab Direc tor: DAVID Rodriguez MD,Ph D Not Available [facility] (Outpatient) [address] [place] [address], [address], 11/18/2020 15:49:46 11/16/19 21 11/19/2020 ANGELICA (anti nucle ar antib odies ) titer + patte rn, ifa, serum ANGELICA titer 1:160 HOMOGE NEOUS 1:160 Speck led Not Available [facility] (Outpatient) [address] [place], [address], 11/19/2020 15:29:20 11/16/19 21 11/19/2020 immun ofixa tion only immunofixati on NO MONOCL ONAL PROTEI N DETECT ED. Not Available [facility] (Outpatient) [address] [place], [address], 11/19/2020 18:03:43 11/16/19 21 11/20/2020 anca, serum C-anca NEGATI VE negati ve Not Available [facility] (Outpatient) [address] [place] [address], [address], 11/20/2020 13:34:00 11/16/19 21 11/20/2020 anca, serum P-anca NEGATI VE negati ve (NOTE ) Negat christen for cANCA and pANCA patte rns by immun ofluo resce nce. ----- ----- ----- ----A DDITI ONAL INFOR MATIO N---- ----- ----- ----- This test was franc buchanan and its perfo rmanc e satish cteri stics deter mined by [place] Neda [facility] in a dee r consi stent with CLIA peggy morris ts. This test has not been clear ed or appro anaya by the U.S. Food and Drug Admin istra tion. Not Available [facility] (Outpatient) [address] [place], [address], 11/20/2020 13:34:00 11/16/19 21 11/20/2020 antoni-1 Ab, serum antoni 1 IgG <0.2 U <1.0 (negat christen) Not Available [facility] (Outpatient) [address] [place], [address], 11/20/2020 13:34:02 11/16/19 21 11/20/2020 prote in elect ropho resis , monoc lonal , serum total protein 6.5 g/dL 6.3-7. 9 Not Available [facility] (Outpatient) [address] [place], [address], 11/20/2020 13:34:09 11/16/19 21 11/20/2020 prote in elect ropho resis , monoc lonal , serum albumin 3.1 g/dL 3.4-4. 7 low Not Available [facility] (Outpatient) [address] [place], [address], 11/20/2020 13:34:09 11/16/19 21 11/20/2020 prote in elect ropho resis , monoc lonal , serum alpha-1 globulin 0.3 g/dL 0.1-0. 3 Not Available [facility] (Outpatient) [address] [place], [address], 11/20/2020 13:34:09 11/16/19 21 11/20/2020 prote in elect ropho resis , monoc lonal , serum alpha-2 globulin 0.9 g/dL 0.6-1. 0 Not Available [facility] (Outpatient) [address] [place], [address], 11/20/2020 13:34:09 11/16/19 21 11/20/2020 prote in elect ropho resis , monoc lonal , serum beta-globuli n 1.1 g/dL 0.7-1. 2 Not Available [facility] (Outpatient) [address] [place], [address], 11/20/2020 13:34:09 11/16/19 21 11/20/2020 prote in elect ropho resis , monoc lonal , serum gamma-globul in 1.2 g/dL 0.6-1. 6 Not Available [facility] (Outpatient) [address] [place], [address], 11/20/2020 13:34:09 11/16/19 21 11/20/2020 prote in elect ropho resis , monoc lonal , serum A/G ratio 0.92 Not Available [facility] (Outpatient) [address] [place], [address], 11/20/2020 13:34:09 11/16/19 21 11/20/2020 prote in elect ropho resis , monoc lonal , serum M spike g/dL Test compo nent not appli cable or not repor farhana. Test compo nent not appli cable or not repor farhana. Not Available [facility] (Outpatient) [address] [place], [address], 11/20/2020 13:34:09 11/16/19 21 11/20/2020 prote in elect ropho resis , monoc lonal , serum impression SEE NOTE (NOTE ) No appar ent monoc lonal prote in on serum elect ropho resis . See Immun ofixa tion. Not Available [facility] (Outpatient) [address] [place], [address], 11/20/2020 13:34:09 11/16/19 21 11/20/2020 prote in elect ropho resis , monoc lonal , serum immunofixati on NO MONOCL ONAL PROTEI N DETECT ED. Not Available [facility] (Outpatient) [address] [place], [address], 11/20/2020 13:34:09 11/16/19 21 11/20/2020 sjogr en antib shirley panel (ssa, ssb, ro, la), serum ss-A/RO IgG <0.2 U <1.0 (negat christen) Not Available [facility] (Outpatient) [address] [place], [address], 11/20/2020 13:34:11 11/16/19 21 11/20/2020 sjogr en antib shirley panel (ssa, ssb, ro, la), serum ss-B/la IgG <0.2 U <1.0 (negat christen) Not Available [facility] (Outpatient) [address] [place], [address], 11/20/2020 13:34:11 11/19/19 21 11/18/2020 urina lysis , dipst ick color YELLOW yellow Not Available [facility] (Outpatient) [address] [place], [address], 11/18/2020 16:32:00 11/19/19 21 11/18/2020 urina lysis , dipst ick clarity CLEAR Not Available [facility] (Outpatient) [address] [place], [address], 11/18/2020 16:32:00 11/19/19 21 11/18/2020 urina lysis , dipst ick glucose NEGATI VE negati ve Not Available [facility] (Outpatient) [address] [place], [address], 11/18/2020 16:32:00 11/19/19 21 11/18/2020 urina lysis , dipst ick bili NEGATI VE negati ve Not Available [facility] (Outpatient) [address] [place], [address], 11/18/2020 16:32:00 11/19/19 21 11/18/2020 urina lysis , dipst ick ketones NEGATI VE negati ve Not Available [facility] (Outpatient) [address] [place], [address], 11/18/2020 16:32:00 11/19/19 21 11/18/2020 urina lysis , dipst ick specific gravity 1.015 1.005- 1.030 Not Available [facility] (Outpatient) [address] [place], [address], 11/18/2020 16:32:00 11/19/19 21 11/18/2020 urina lysis , dipst ick blood NEGATI VE negati ve Not Available [facility] (Outpatient) [address] [place], [address], 11/18/2020 16:32:00 11/19/19 21 11/18/2020 urina lysis , dipst ick pH 6.0 5.0-8. 0 Not Available [facility] (Outpatient) [address] [place], [address], 11/18/2020 16:32:00 11/19/19 21 11/18/2020 urina lysis , dipst ick protein NEGATI VE negati ve Not Available [facility] (Outpatient) [address] [place], [address], 11/18/2020 16:32:00 11/19/19 21 11/18/2020 urina lysis , dipst ick nitrite NEGATI VE negati ve Not Available [facility] (Outpatient) [address] [place], [address], 11/18/2020 16:32:00 11/19/19 21 11/18/2020 urina lysis , dipst ick leukocyte esterase, ur TRACE negati ve abnormal Not Available [facility] (Outpatient) [address] [place], [address], 11/18/2020 16:32:00 11/19/19 21 11/18/2020 urine sedim ent WBC 5-10 /hpf none seen abnormal Not Available [facility] (Outpatient) [address] [place], [address], 11/18/2020 16:50:56 11/19/19 21 11/18/2020 urine sedim ent RBC 3-5 /hpf none seen abnormal Not Available [facility] (Outpatient) [address] [place], [address], 11/18/2020 16:50:56 11/19/19 21 11/18/2020 urine sedim ent urine epithelial 0-4 none seen abnormal Not Available [facility] (Outpatient) [address] [place], [address], 11/18/2020 16:50:56 11/19/19 21 11/18/2020 urine sedim ent mucus 1+ /hpf none seen abnormal Not Available [facility] (Outpatient) [address] [place], [address], 11/18/2020 16:50:56 11/19/19 21 11/18/2020 urine sedim ent bacteria TRACE /hpf none seen abnormal Not Available [facility] (Outpatient) [address] [place], [address], 11/18/2020 16:50:56 11/19/19 21 11/18/2020 urine sedim ent cast 0-2 HYALI NE CAST Not Available [facility] (Outpatient) [address] [place], [address], 11/18/2020 16:50:56 11/25/19 21 2020 C-harley ctive prote in, quant itati ve, serum or plasm a C reactive protein 5.2 mg/L 0.0-4. 0 high Not Available [facility] (Outpatient) [address] [place], [address], 2020 18:27:18 11/25/19 21 2020 lfts (hepa tic panel ) alkaline phosphatase 105 U/L 39-117 Not Available [facility] (Outpatient) [address] [place], [address], 2020 18:27:19 11/25/19 21 2020 lfts (hepa tic panel ) total bilirubin 0.2 mg/dL 0.0-1. 2 Not Available [facility] (Outpatient) [address] [place], [address], 2020 18:27:19 11/25/19 21 2020 lfts (hepa tic panel ) direct bilirubin <0.2 mg/dL 0-0.3 Not Available [facility] (Outpatient) [address] [place], [address], 2020 18:27:19 11/25/19 21 2020 lfts (hepa tic panel ) bilirubin (indirect) NOT CALCUL ATED mg/dL 0-1.5 Not Available [facility] (Outpatient) [address] [place], [address], 2020 18:27:19 11/25/19 21 2020 lfts (hepa tic panel ) AST 15 U/L 0-37 Not Available [facility] (Outpatient) [address] [place], [address], 2020 18:27:19 11/25/19 21 2020 lfts (hepa tic panel ) ALT 12 U/L 0-40 Not Available [facility] (Outpatient) [address] [place], [address], 2020 18:27:19 11/25/19 21 2020 lfts (hepa tic panel ) total protein 7.1 g/dL 6.5-8. 0 Not Available [facility] (Outpatient) [address] [place], [address], 2020 18:27:19 11/25/19 21 2020 lfts (hepa tic panel ) albumin 4.0 g/dL 3.9-4. 8 Not Available [facility] (Outpatient) [address] [place], [address], 2020 18:27:19 11/25/19 21 2020 lfts (hepa tic panel ) globulin 3.1 g/dL 1-4.8 Not Available [facility] (Outpatient) [address] [place], [address], 2020 18:27:19 11/25/19 21 2020 lfts (hepa tic panel ) A/G ratio 1.29 ratio 1.00-4 .80 Not Available [facility] (Outpatient) [address] [place], [address], 2020 18:27:19 11/25/19 21 2020 eryth rocyt e sedim entat ion rate by eryn thrasher d ESR 16 mm/h 0-30 Not Available [facility] (Outpatient) [address] [place], [address], 2020 19:08:00 11/25/19 21 2020 urina lysis , compl ete WBC 11-20 /hpf none seen abnormal Not Available [facility] (Outpatient) [address] [place], [address], 2020 20:57:45 11/25/19 21 2020 urina lysis , compl ete RBC 0-2 /hpf none seen abnormal Not Available [facility] (Outpatient) [address] [place], [address], 2020 20:57:45 11/25/19 21 2020 urina lysis , compl ete urine epithelial 0-4 none seen abnormal Not Available [facility] (Outpatient) [address] [place], [address], 2020 20:57:45 11/25/19 21 2020 urina lysis , compl ete mucus Trace /hpf none seen abnormal Not Available [facility] (Outpatient) [address] [place], [address], 2020 20:57:45 11/25/19 21 2020 urina lysis , compl ete bacteria Trace /hpf none seen abnormal Not Available [facility] (Outpatient) [address] [place], [address], 2020 20:57:45 11/25/19 21 2020 urina lysis , compl ete color Yellow yellow Not Available [facility] (Outpatient) [address] [place], [address], 2020 20:57:45 11/25/19 21 2020 urina lysis , compl ete clarity Clear Not Available [facility] (Outpatient) [address] [place], [address], 2020 20:57:45 11/25/19 21 2020 urina lysis , compl ete glucose Negati ve negati ve Not Available [facility] (Outpatient) [address] [place], [address], 2020 20:57:45 11/25/19 21 2020 urina lysis , compl ete bili Negati ve negati ve Not Available [facility] (Outpatient) [address] [place], [address], 2020 20:57:45 11/25/19 21 2020 urina lysis , compl ete ketones Negati ve negati ve Not Available [facility] (Outpatient) [address] [place], [address], 2020 20:57:45 11/25/19 21 2020 urina lysis , compl ete specific gravity 1.010 1.005- 1.030 Not Available [facility] (Outpatient) [address] [place], [address], 2020 20:57:45 11/25/19 21 2020 urina lysis , compl ete blood Negati ve negati ve Not Available [facility] (Outpatient) [address] [place], [address], 2020 20:57:45 11/25/19 21 2020 urina lysis , compl ete pH 6.5 5.0-8. 0 Not Available [facility] (Outpatient) [address] [place], [address], 2020 20:57:45 11/25/19 21 2020 urina lysis , compl ete protein Negati ve negati ve Not Available [facility] (Outpatient) [address] [place], [address], 2020 20:57:45 11/25/19 21 2020 urina lysis , compl ete nitrite Negati ve negati ve Not Available [facility] (Outpatient) [address] [place], [address], 2020 20:57:45 11/25/19 21 2020 urina lysis , compl ete leukocyte esterase, ur 2+ negati ve abnormal Not Available [facility] (Outpatient) [address] [place], [address], 2020 20:57:45 11/25/19 21 11/26/2020 C3 (comp lemen t), serum or plasm a C3 113 mg/dL 81-157 Not Available [facility] (Outpatient) [address] [place] [address], [address], 11/26/2020 11:24:09 11/25/19 21 11/26/2020 C4 (comp lemen t), serum or plasm a C4 22 mg/dL 12-39 Not Available [facility] (Outpatient) [address] [place] [address], [address], 11/26/2020 11:24:19 11/25/19 21 11/26/2020 ANGELICA (anti nucle ar antib odies ) scree n, serum ANGELICA screen on hep 2 Positi ve negati ve abnormal An ANGELICA Titer has been refle xed. The resul catrina smith Not Available [facility] (Outpatient) [address] [place] [address], [address], 11/26/2020 14:34:53 11/25/19 21 11/26/2020 ANGELICA (anti nucle ar antib odies ) titer + patte rn, ifa, serum ANGELICA titer 1:80 Homoge neous Not Available [facility] (Outpatient) [address] [place] [address], [address], 11/26/2020 14:40:05 11/25/19 21 11/27/2020 anca, serum C-anca Negati ve negati ve Not Available [facility] (Outpatient) [address] [place] [address], [address], 11/27/2020 13:47:09 11/25/19 21 11/27/2020 anca, serum P-anca Negati ve negati ve (NOTE ) Negat christen for cANCA and pANCA patte rns by immun ofluo [place] n[place]. ----- ----- ----- ----A DDITI ONAL INFOR MATIO N---- ----- ----- ----- This test was devel oped and its perfo rmanc e satish cteri stics deter mined by [facility] in a dee r consi stent with SURI fritz. This test has not been clear ed or appro anaya by the U.S. Food and Drug Admin istra tion. Not Available [facility] (Outpatient) [address] [place], [address], 11/27/2020 13:47:09 11/25/19 21 11/27/2020 antoni-1 Ab, serum antoni 1 IgG <0.2 U <1.0 (negat christen) Not Available [facility] (Outpatient) [address] [place], [address], 11/27/2020 13:47:11 11/25/19 21 11/27/2020 sjogr en antib shirley panel (ssa, ssb, ro, la), serum ss-A/RO IgG <0.2 U <1.0 (negat christen) Not Available [facility] (Outpatient) [address] [place], [address], 11/27/2020 13:47:12 11/25/19 21 11/27/2020 sjogr en antib shirley panel (ssa, ssb, ro, la), serum ss-B/la IgG <0.2 U <1.0 (negat christen) Not Available [facility] (Outpatient) [address] [place], [address], 11/27/2020 13:47:12 11/25/19 21 11/27/2020 hla-B 27, blood hla-B27 result Negati ve not applic able Not Available [facility] (Outpatient) [address] [place], [address], 11/27/2020 14:07:21 11/25/19 21 11/27/2020 hla-B 27, blood interpretati on SEE NOTE (NOTE ) HLA-B 27 antig en was not detec farhana. ----- ----- ----- ----A MELVINAITI ONAL INFOR IRMA N---- ----- ----- ----- Angela d: Flow Cytom etry CLIA: [id number] CLIA Lab Direc tor: DAVID Rodriguez MD,Ph D Not Available [facility] (Outpatient) [address] [place], [address], 11/27/2020 14:07:21 11/25/19 21 11/27/2020 prote in elect ropho resis and isoty pe therapeutic antibody administered ? No Not Available [facility] (Outpatient) [address] [place], [address], 11/27/2020 16:30:30 11/25/19 21 11/27/2020 prote in elect ropho resis and isoty pe total protein 6.6 g/dL 6.3-7. 9 Not Available [facility] (Outpatient) [address] [place], [address], 11/27/2020 16:30:30 11/25/19 21 11/27/2020 prote in elect ropho resis and isoty pe albumin 3.2 g/dL 3.4-4. 7 low Not Available [facility] (Outpatient) [address] [place], [address], 11/27/2020 16:30:30 11/25/19 21 11/27/2020 prote in elect ropho resis and isoty pe alpha-1 globulin 0.2 g/dL 0.1-0. 3 Not Available [facility] (Outpatient) [address] [place], [address], 11/27/2020 16:30:30 11/25/19 21 11/27/2020 prote in elect ropho resis and isoty pe alpha-2 globulin 0.9 g/dL 0.6-1. 0 Not Available [facility] (Outpatient) [address] [place], [address], 11/27/2020 16:30:30 11/25/19 21 11/27/2020 prote in elect ropho resis and isoty pe beta-globuli n 1.0 g/dL 0.7-1. 2 Not Available [facility] (Outpatient) [address] [place], [address], 11/27/2020 16:30:30 11/25/19 21 11/27/2020 prote in elect ropho resis and isoty pe gamma-globul in 1.2 g/dL 0.6-1. 6 Not Available [facility] (Outpatient) [address] [place], [address], 11/27/2020 16:30:30 11/25/19 21 11/27/2020 prote in elect ropho resis and isoty pe A/G ratio 0.94 Not Available [facility] (Outpatient) [address] [place], [address], 11/27/2020 16:30:30 11/25/19 21 11/27/2020 prote in elect ropho resis and isoty pe M spike g/dL Test compo nent not appli cable or not repor farhana. Test compo nent not appli cable or not repor farhana. Not Available [facility] (Outpatient) [address] [place], [address], 11/27/2020 16:30:30 11/25/19 21 11/27/2020 prote in elect ropho resis and isoty pe impression SEE NOTE (NOTE ) No appar ent monoc lonal prote in on serum elect ropho resis . See Isoty pe. Not Available [facility] (Outpatient) [address] [place], [address], 11/27/2020 16:30:30 11/25/19 21 11/27/2020 prote in [...] e satish cteri stics deter mined by [facility] in a dee r consi stent with SURI fritz. This test has not been clear ed or appro anaya by the U.S. Food and Drug Admin istra tion. Not Available [facility] (Outpatient) [address] [place], [address], 11/27/2020 16:30:30 11/25/19 21 11/27/2020 prote in elect ropho resis and isoty pe flag M-protn isotype Negati ve negati ve Not Available [facility] (Outpatient) [address] [place], [address], 11/27/2020 16:30:30 11/25/19 21 12/22/2020 M-pro tein [...] and Drug Admin istra tion. Not Available [facility] (Outpatient) [address] [place], [address], 12/22/2020 12:23:56 11/25/1912/22/2020 M-pro tein isoty pe only M-protein isotype maldi-tof MS No monocl onal protei n detect ed. Not Available [facility] (Outpatient) [address] [place], [address], 12/22/2020 12:23:56 11/25/1912/22/2020 M-pro tein isoty pe only therapeutic antibody administered ? No Not Available [facility] (Outpatient) [address] [place], [address], 12/22/2020 12:23:56 11/25/1912/22/2020 M-pro tein isoty pe [...] e satish debbieri kolby kidd mined by [facility] in a dee r consi stent with CLIA requi remen ts. This test has not been clear ed or appro anaya by the U.S. Food and Drug Admin istra tion. Not Available [facility] (Outpatient) [address] [place], [address], 12/22/2020 12:38:27 11/25/1912/22/2020 M-pro tein isoty pe only M-protein isotype maldi-tof MS No monocl onal protei n detect ed. Not Available [facility] (Outpatient) [address] [place], [address], 12/22/2020 12:38:27 11/25/1912/22/2020 M-pro tein isoty pe only therapeutic antibody administered ? No Not Available [facility] (Outpatient) [address] [place], [address], 12/22/2020 12:38:27 06/26/20 20 06/24/2020 XR, knee [...] soft tissue injury withou t or with internet designer amteo bradford. Electr onical ly signed Readin g Physic angel: Eusebio Moncada ms [facility] (Imaging) [address], [place], [address], 06/28/2020 19:00:40 06/26/20 20 06/24/2020 XR, hand [...] Lo morfin Physic angel: Eusebio Moncada ms [facility] (Imaging) [address], [place], [place], [address], 06/28/2020 19:00:40 07/16/20 20 07/15/2020 MRI knee [...] ce increa sed T2 signal within the manager store ior horn of the medial menisc us indica tive of degene ration . There is focal T2 hyperi ntense defect in the manager store ior menisc al root attach ment indica tive of a tear. There is mild frayin g of the inferi or margin of the manager store ior menisc al root attach ment of the latera l menisc us. Crucia te ligame nts: Anteri or and manager store ior crucia te ligame nts are intact [...] spanni ng 7.2 cm in length with internet designer al debris and septat ions. There is modera te diffus e fatty muscle atroph y of the gastro cnemiu s muscle s and mild fatty atroph y of the distal thigh muscle s. IMPRES JOSE: 1.Medi al menisc us manager store ior menisc al root attach ment tear, medial menisc us manager store ior horn intras ubstan ce degene ration and frayin g of the latera l menisc us manager store ior menisc al root attach ment. No [...] contus ions. Electr onical ly Signed by: Jimmy pierce on 2019 8:38 AM Interp reted by: Jimmy pierce MD Signed by: Jimmy pierce MD Final result Rt knee wo Pt sts fell from horse in end of oct beg of november- pain since. No prior exams R KNEE PAIN AND SWELLI NG SINCE 02/22 FRAN SANTOS ND [facility] [address] [facility], [place], [address], 09/16/2020 13:46:47 09/01/2009/01/2020 isabel ROBERTS, tomos ynthe [...] Lo morfin Physic angel: [facility] [place] [address] (Imaging) [address] , [place], [place], [address], 09/16/2020 07:57:19 12/27/19 25 12/25/2024 MAMMO , scree pramod, tomos ynthe sis, bilat eral MAMMO, SCREEN , ANGEL, BILAT: 025. BI-RAD S: 1 CLINIC AL: 59-yea r old Female for Bilate ral Screen ing Mammog adriel. [facility] me risk of 5.3%. No person [...] AM Lo morfin Physic angel: Malcolm Alvarez [facility] (Imaging) [address] , [place], [address], 12/26/2024 11:03:33 Result Notes Documentation Provider Name [...] Electronically signed Reading Physician: Mayo Lyman MD [address] [place] [address], [phone], [facility] 06/28/2020 15:08:40 Xr, Hand : OBSERVATION: CLINICAL [...] Electronically signed Reading Physician: Mayo Lyman MD [address] [place] [address], [phone], [facility] 06/28/2020 15:08:40 Mammo, Screening, Tomosynthesis, Bilateral : [...] Electronically signed Reading Physician: Mayo Blount MA [facility] 09/16/2020 07:57:19 Mammo, Screening, Tomosynthesis, Bilateral : [...] follow-up. OVERALL ASSESSMENT CATEGORY BI-RADS-1: Negative. The [employer] recommends annual screening mammography beginning at age 40 for women with average risk of breast cancer. ELECTRONICALLY SIGNED: Sintia Alvarez M.D. on 12/26/2024 at 10:56:57 AM Reading Physician[facility]26/2024 11:03:33 Problems Name Problem SNOMED Code Status Onset Date Resolution Date Notes Provider Name and Address Organization Details Recorded Time Sciatica 14228129 Active Not Available [facility] 3 03:15:33 Low back pain 691228494 Active Not Available [facility] 3 03:15:33 Disorder of trunk 557387567 Completed 07/25/2013 Not Available [facility] 3 02:03:41 Chest pain 66387939 Completed 07/25/2013 Not Available [facility] 3 02:01:46 Upper chest pain 179700122 Completed 201509/10/2020 Karely Hubbard PA-C [address] [place] [address], , [facility] 1 08:42:45 Palpitat ions 92006454 Active 2017 Loraine Davila NP [address] [place] [address], , [facility] 8 08:34:09 Migraine 01759636 Active 2019 Loraine Davila NP [address] [place] [address], , [facility] 0 15:14:58 Pain in right knee Active 2019 likely meniscus tear, starting PT Karely Hubbard PA-C [address] [place] [address], , [facility] 0 09:31:22 Lumbar radiculo jo 490386337 Active 2019 s/p discecto my x2, gabapent in, PS&S Karely Hubbard PA-C [address] [place] [address], , [facility] 0 09:31:42 Obesity 943910805 Active 2020 Karely Hubbard PA-C [address] [place] [address], , [facility] 1 08:41:16 Rupture of medial collater al ligament of knee 735652942 Active 2020 Karely Hubbard PA-C [address] [place] [address], , [facility] 1 08:42:33 Tear of medial meniscus of knee 035104774 Active 2020 Karely Hubbard PA-C [address] [place] [address], [phone] , [facility] 1 08:42:41 Dry eyes 678046482 Active 2020 Karely Hubbard PA-C [address] [place] [address], [phone] , [facility] 1 09:03:30 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 Procedures Surgical History Date Name Laterality Status Provider Name and Address Organization Details Recorded Time 1 prevention-car diovascular risk reduction counseling completed [facility] 09/09/2020 16:19:59 1 prevention-ronna ual alcohol misuse screening completed [facility] 09/09/2020 16:19:59 0 prevention-car diovascular risk reduction counseling completed Vinnie Bennett [facility] 04/15/2020 08:32:45 0 prevention-ronna ual alcohol misuse screening completed Vinnie Bennett [facility] 04/15/2020 08:32:45 2 Treatment and Advice completed Sintia Cano Mph, LPT [address] [place] [address], [phone], [facility] 04/14/2012 13:39:55 2 Treatment and Advice completed Sintia Cano Mph, LPT [address] [place] [address], [phone], [facility] 04/10/2012 14:11:17 Back Surgery completed Not Available 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 Procedure Notes None recorded. Medical Equipment None Reported. Allergies Allergen ID Allergen Name Allergen Category Reaction Reaction Severity Criticality Documentation Date Start Date Code Code System Note Provider Name and Address Organization Details Recorded Time 480603 honey bee venom environme nt anaphylax is Not available Not available 12/12/2013 58221 7 RxNorm and all kinds of bees [facility]ita [facility] 4 08:41:03 09130 Product containin g penicilli n (product) medicatio n hives Not available Not available 06/15/2011 93900 8001 SNOMED Not Available [facility] 1 06:05:41 Medications Name Sig Start [...] Updated DateTime 09/10/2020 168.91 cm 32.8 kg/m2 92828.03 g 64 /min Carmen Mine, [facility] 09/10/2020 08:39:41 Date Recorded Body height Body temperature Body mass index (BMI) Body weight Heart rate Provider Name and Address Organization Details Last Updated DateTime 11/13/2020 168.91 cm 97.5 [degF] 32.6 kg/m2 80883.44 g 65 /min Maeve calles, [facility] [place]) 12:46:05 Date Recorded Body height Heart rate Provider Name and Address Organization Details Last Updated DateTime 2020 168.91 cm 80 /min Maeve Henson, [facility] [place] 2020 15:33:17 Date Recorded Body height Body mass index (BMI) Body weight Heart rate Provider Name and Address Organization Details Last Updated DateTime 06/23/2020 168.91 cm 32.6 kg/m2 25256.44 g 73 /min Colette Joaquin [facility] 06/23/2020 16:50:45 Social History Question Answer Notes [...] How Much Tobacco Do You Smoke? No [email or web address] Information not available 09/10/2020 General Stress Level Medium Information not available 07/23/2011 How Many Years Have You Smoked Tobacco? 0 [email or web address] Information not available 09/10/2020 Sex: Unknown Functional Status Question Answer Note LastModified by Organizat ion Details LastModified Time What is your level of alcohol consumption? Occasional [email or web address] Information not available 03/28/2017 Do you or have you ever used smokeless tobacco? 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 Information not [...] virus, trivalent, preservative 2 completed Not Available [facility] 09/22/2019 02:34:14 Tdap 8 completed Not Available [facility] 04/24/2020 17:59:49 Td(adult) unspecified formulation 4 completed Not Available [facility] 04/24/2020 17:59:49 MMR 9 completed Not Available [facility] 04/24/2020 17:59:49 Influenza, split virus, quadrivalent, PF 6 completed Not Available [facility] 09/22/2019 02:29:58 Td (adult), 2 Lf tetanus toxoid, preservative free, adsorbed 8 completed Not Available [facility] 09/22/2019 02:22:34 Influenza, split virus, quadrivalent, PF 0 completed ENEIDA Keating, [facility] 07/12/2020 12:52:41 Past Encounters Encounter ID Performer Location Encounter Start Date Encounter Closed Date Diagnosis/Indication Diagnosis SNOMED-CT Code Diagnosis ICD10 Code Diagnosis Note [id number] Loraine Davila NP , [facility], OFFICE [address] [place] [id number] 06/15/2011 09:15:51 06/15/2011 10:28:50 [id number] Loraine Davila NP FP, [facility], OFFICE [address] [place] [address] 07/23/2011 14:40:50 07/23/2011 15:51:11 [id number] [facility] MAMMO TECH Radiology , [address] [address] 07/23/2011 14:05:32 07/26/2011 14:20:18 [id number] Taylor Bear MD FP, [facility], OFFICE [address] [place] [address] 04/07/2012 08:07:45 04/07/2012 08:41:04 [id number] Sintia Cano Mph, LPT Physical Therapy, [address] [address] 04/10/2012 09:12:21 04/10/2012 14:43:42 [id number] Sintia Cano Mph, LPT Physical Therapy, [facility] [address] [facility] [place] [address] 04/14/2012 09:21:17 04/14/2012 13:55:36 [id number] Sintia Cano Mph, LPT Physical Therapy, [facility] [address] [facility] [place] [address] 04/18/2012 16:07:10 04/18/2012 16:49:37 [id number] Sintia Cano Mph, LPT Physical Therapy, [facility] [address] [facility] [place] [address] 05/02/2012 08:44:14 05/02/2012 09:46:32 [id number] Sintia Cano Mph, LPT Physical Therapy, [facility] [address] [facility] [place] [address] 05/09/2012 08:02:52 05/09/2012 08:44:25 [id number] MD TEDDY Anders, [facility], OFFICE [address] [facility] [place] [address] 07/24/2012 15:52:34 07/24/2012 16:55:58 [id number] MD TEDDY Muhammad, [facility], OFFICE [address] [facility] [place] [place] [address] 11/01/2012 08:23:11 11/01/2012 09:33:34 [id number] MD TEDDY Muhammad, [facility], OFFICE [address] [facility] [place] [address] 12/13/2012 14:52:39 12/13/2012 15:36:06 [id number] MD TEDDY Muhammad, [facility], OFFICE [address] [facility] [place] [place] [address] 11/21/2013 09:28:11 11/21/2013 10:45:26 Lumbar radiculopathy 138333005 [id number] MD TEDDY Muhammad, [facility], OFFICE [address] [facility] [place] [address] 12/12/2013 08:28:34 12/12/2013 09:38:38 Adult health examination 793577606 see Risk Assessment and Lifestyle Change Counseling section above Counseling [id number] Lumbar radiculopathy 643410249 [id number] LIMA Brasher-DANIELITO , [facility], OFFICE [address] [place] [address] 04/02/2016 12:03:28 04/02/2016 12:26:05 Intertrigo 19322884 L30.4 visually consistent with shivani. treat with topical nystatin, prn cortisone cream (pt has at home) for itch. [id number] Taylor Bear MD , [facility], OFFICE [address] [place] [address] 04/30/2016 10:50:33 04/30/2016 11:37:49 Candidal intertrigo 041916287 B37.2 [id number] Taylor Bear MD , [facility], OFFICE [address] [place] [id number] 05/17/2016 10:20:34 05/17/2016 12:06:12 Adult health examination 863044142 Z00.00 see Risk Assessment and Lifestyle Change Counseling section above Counseling 187629055 Z71 .9 Screening for disorder 969033610 Z11.59 Screening mammography 24 939329 Z12.31 Active or passive immunization 383415317 Z23 Upper chest pain 0034317 08 R07.9 Cramp in l ower limb associated with sleep 5335040759 62370 G47.62 [id number] Kaye Stubbs , [facility], OFFICE [address] [place] [id number] 07/13/2016 14:14:59 07/13/2016 14:42:53 Acute upper respiratory infection 09047522 J06.9 Educated patient that URI is a [...] to resolve in 2-4 weeks. Otitis media 58383973 H6 6.92 - Start taking antibiotic - Complete the entire course of antibiotic as prescribed . - Return to the office if you develop worsening ear pain, fever, or discharge from the ear. [id number] PATI Bo , [facility], OFFICE [address] [place] [address] 11/09/2016 10:54:35 11/09/2016 11:21:10 Otalgia 64062153 H92.02 discussed daily antihistam ine (claritin or zyrtec), gentle equilibrat ion, occasional sudafed. Follow up if symptoms worsen, or you have fever, discharge or hearling loss. [id number] Dany Simms MD , [facility]ICE [address] [place] [address] 03/28/2017 11:59:15 03/28/2017 13:27:04 Screening for malignant neoplasm of colon 032411376 Z12.11 Referral for a DIRECT booked colonoscop y. This patient is a healthy ASA Class 1 or 2 patient (only mild systemic disease), or a STABLE, well controlled insulin dependent diabetic. They do not have serious cardiac disease ie IA/angiopl asty within 1 year, symptomati c CHF; renal failure with CKD 4 or 5; take Coumadin, Plavix, Aggrenox, etc. Onychomyco sis due to dermatophyte 752069915 B35.1 early toenail fungal infection, can partial removal prevent further spread?L hallux Disorder o f rotator cuff 570851101 M75.101 right sided bad diseasewil begin with injection and PTother right sided pain, elbow and knee are tendinopat hies, overuse type, rec neoprene sleeve , prophylact ic motrin for long walks, eg [id number] Fran Lyman MD , [facility], OFFICE [address] [place] [address] 04/08/2017 08:45:51 04/08/2017 09:36:54 Screening for malignant neoplasm of colon 281755938 Z12.11 Referral for a DIRECT booked colonoscop y. This patient is a healthy ASA Class 1 or 2 patient (only mild systemic disease), or a STABLE, well controlled insulin dependent diabetic. They do not have serious cardiac disease ie IA/angiopl asty within 1 year, symptomati c CHF; renal failure with CKD 4 or 5; take Coumadin, Plavix, Aggrenox, etc. Adhesive c apsulitis of right shoulder 8496377415 97888 M75.01 Pain of mu ltiple joints 93019270 M25.50 [id number] Russell Neville MD , [facility], OFFICE [address] [place] [address] 04/26/2017 12:03:21 04/26/2017 12:34:50 On examination - a rash 331363921 R21 [id number] Nikolay Rowell MD Sports Medicine, [facility] [address] [place] [address] 05/04/2017 09:30:07 05/04/2017 10:25:24 Pain of shoulder region 37070622 M25.511 Nanci is a 51-year-ol d female [...] me in 8 weeks for reevaluati on. [id number] Taylor Bear MD , [facility], OFFICE [address] [place] [id number] 12/23/2017 07:59:27 12/23/2017 09:05:03 Adult health examination 879318703 Z00.00 see Risk Assessment and Lifestyle Change Counseling section above Counseling 911560422 Z71 .9 Depression screening 171 833691 Z13.89 depression screening tool administer ed, entered into emr, scored and discussed, time greater than 7.5 minutes. Screening negative. Discussed. Screening for malignant neoplasm of colon 804067613 Z12.11 not ready to do colonoscop y Palpitations 78107333 R0 0.2 Bee sting- induced anaphylaxis 119625187 T63.441A Atopic dermatitis 004574 01 L20.9 Active or passive immunization 075386643 Z23 Obesity 298052020 E66.9 [id number] Taylor Bear MD , [facility], OFFICE [address] [place] [address] 09/06/2018 15:11:54 09/06/2018 16:27:39 Screening mammography 38628237 Z12.31 Anxiety 81281620 F41.9 Chest pain 68921767 R07. 9 Acute uppe r respiratory infection 44046123 J06.9 [id number] Kaye Stubbs , [facility], OFFICE [address] [place] [address] 01/25/2019 11:05:23 01/25/2019 12:02:03 Low back pain 089662006 M54.5 Prednisone 40 mg 5 days. Stop NSAIDs while on prednisone . Cyclobenza del 5 mg up to 3 times a day as needed for muscle spasm. Discussed side effects, risks, benefits of both medication s. Referred stat to [facility]. Patient advised referral should be processed within 24 hours, advised to call [facility] if she is not heard within 24 hours to schedule an appt. Lumbar x-ray today to rule out acute fracture. Reviewed emergency signs and symptoms of low back pain, including bowel/blad antonella incontinen ce/retenti on, saddle anesthesia . Patient agrees to seek emergency care should any of those develop. [id number] Taylor Bear MD , [facility], OFFICE [address] [place] [address] 10/26/2019 14:50:44 10/26/2019 15:30:42 Closed fracture of proximal left humerus 5106136208 8429630 S42.202A Anaphylaxis 43788130 T78 .2XXS Constipation 72680388 K5 9.00 [id number] Lindsay Suarez MD , [facility], OFFICE [address] [place] [address] 02/20/2020 12:01:42 02/20/2020 15:27:20 Screening mammography 14726912 Z12.31 Pain in right knee 75461 78159 08124 M25.561 you can use both ibuprofen and [...] bear. that might require an Ortho consult [id number] Taylor Bear MD , [facility], OFFICE [address] [place] [address] 02/26/2020 11:34:08 02/27/2020 09:39:17 Backache 907019060 M54.9 [id number] Taylor Bear MD , [facility], OFFICE [address] [place] [address] 04/15/2020 14:32:37 04/21/2020 14:03:08 Depression screening 186504511 Z13.89 depression screening tool administer ed, entered into emr, scored and discussed, time greater than 7.5 minutes. Screening positive, likely related to acute pain. Low back pain 724421386 M54.5 Migraine 77932169 G43.90 9 Pain in right knee 76325 92616 03683 M25.634 [id number] Kaye Stubbs , [facility], OFFICE [address] [place] [address] 05/02/2020 09:11:07 05/05/2020 15:40:06 Lumbar radiculopathy 038409641 M54.16 - improved with steroid course, now starting gabapentin for longer term pain relief through [facility]- acute on chronic Pain in right knee 67178 81616 28385 M25.561 - starting PT, likely meniscus issue, would consider MRI if not improving [id number] Fran Lyman MD , [facility], OFFICE [address] [place] [address] 06/23/2020 16:47:27 06/25/2020 11:27:43 Screening for malignant neoplasm of colon 555404409 Z12.11 Referral for a DIRECT booked colonoscop y. This patient is a healthy ASA Class 1 or 2 patient (only mild systemic disease), or a STABLE, well controlled insulin dependent diabetic. They do not have serious cardiac disease ie IA/angiopl asty within 1 year, symptomati c CHF; renal failure with CKD 4 or 5; take Coumadin, Plavix, Aggrenox, etc. Pain in right knee 14644 77368 80651 M25.561 R knee pain, intermitte nt swelling, X-ray pending, MRI denied by [facility], has done PT. Pain of bi lateral hands 2898523400 2432073 M79.123 [id number] Fran Lyman MD , [facility], OFFICE [address] [place] [address] 07/12/2020 08:31:44 07/14/2020 06:50:22 Active or passive immunization 734880699 Z23 [id number] Kaye Stubbs , [facility], OFFICE [address] [place] [address] 09/10/2020 08:33:36 09/10/2020 12:11:07 Adult health examination 485238462 Z00.00 Counseling 795242740 Z71 .9 Cardiovasc ular risk reduction was discussed including benefits and risks of aspirin, exercise goals, healthy eating and healthy weight . Discussion greater than 7.5 minutes. Depression screening 171 229547 Z13.89 - depression screening tool administer ed, entered into emr, scored and discussed, time greater than 7.5 minutes - negative screening Screening for alcohol abuse 446737991 Z13.39 - alcohol screening tool administer ed, entered into emr, scored and discussed, time greater than 7.5 minutes Tear of me niscus of knee 299658214 S83.206A - planning surgery upcoming with Dr. Martinez Obesity 515933588 E66.9 - will schedule labs fasting - exercise limited due to knee and back issues, upcoming surgery with hope of returning to more exercise - she is doing upper extremity exercises and chair yoga Retinal hemorrhage 01182 008 H35.61 - will call for notes from optometry - will look for BP from optometry notes and ortho notes, if elevated, will have in the office for BP check - checking for diabetes as well Menopausal flushing 1984 20523 N95.1 - significan t and gabapentin for back pain is not helping - does not want to try other medication s at this time [id number] Marlene Swann MD Rheumatol ogy, [address] [address] 11/13/2020 07:45:02 11/13/2020 19:27:18 Anti-nuclear factor detected 104802827 R76.8 Patient reports joints pain and stiffness , and she was found to have low titers ANGELICA , decreased complement s and recently diagnosed with bilateral retinal vasculitis . I will order more labs and reassess. Retinal vasculitis 69786 002 H35.063 As above. If ophthalmol ogist is planning steroids treatment, no contraindi cation from my standpoint , after patient has her labs done. Chronic low back pain 27 4241801 M54.5 Looks mechanical . Pain worsening with movement and better with rest. [id number] Marlene Swann MD Rheumatol oggisela, [address] [address] 2020 07:58:43 2020 19:37:07 Anti-nuclear factor detected 186963736 R76.8 Patient reports joints pain and stiffness [...] finding. Awaiting repeat urine testing. Retinal vasculitis 11152 002 H35.063 On PO steroids per ophthalmol ogy. Chronic low back pain 27 3558638 M54.5 Looks mechanical . Pain worsening with movement and better with rest. Microscopic hematuria 19 7246492 R31.29 as above, No hematuria or dysuria. [...] [employer] [place] Donte Armando [id number] Nanci Websetr Armando 12/23/2017 1 [facility] [id number] Donte Rodriguez Armando [id number] Nanci Webster Armando 04/07/2012 1 *SELF PAY* Bre Webster Armando 12/25/2024 1 [place] [facility] [id number] Nanci Webster Frederickelainaabhi [id number] Nanci Webster Frederickelainaabhi 12/25/2024 1 [place] [facility] [id number] Nanci Webster Frederickelainaabhi [id number] Nanci Webster Ferderickelainaabhi Notes Date Note Type Note Provider Name and Address Organization Details Recorded Time 0 text/html This is a virtual visit due to the covid-19 znijlftf13/19/2020Time for intake: 5 minutes. Of note had [...] weeks. Presumed torn meniscus. Saw Josefina at [facility] in [place] for PT Pain is worst [...] sure if RA. Fran Lyman MD [address] [place], [address], [facility] 06/23/2020 17:27:17 1 text/html Physical Exam/FemaleReported by PatientHPIFor pha, patient reportspatient is here for a wellness visit. she describes her health status as good. patient's health is the same as last year.. Risk Assessment and Lifestyle Change Counseling 50-64Reported by PatientRisk AssessmenFor colon cancer risk assessment, patient reportsfamily history of colon polyps or colon cancer (grandfather). For breast cancer risk assessment, patient reportsno family history of breast cancerandno history of breast cancer or dcis. For lung cancer risk assessment, patient reportsnever smoked.Diet CounselingFor diet, patient reportscounseled about appropriate portion size,counseled about decreasing carbohydrates, anddiscussed the value of a mediterranean diet , and eating more fruits and vegetables.Physical Activity CounselingForexercise counseling:, patient reportsdiscussed the importance of daily physical activity.Family PlanningForfamily planning:, patient reportsusing control __( had vasectomy). Time for intake: 5 minutes. 54 year old patient presents for wellness visit via [employer]. 1. Right knee:- meniscus and complete MCL tear, byrd's cyst- planning athroscopy with Dr. Martinez next 2. Health Maintenance:- due for colonoscopy (scheduled in November), pap smear (will schedule in Spring)- saw irregular veining and hemorrhages, being sent to [facility] in right eye, does have changes in vision- also severe dry eyes 3. Lumbar radiculopathy- s/p surgery, taking gabapentin- had two injections with Dr. Muller at [facility] 4. Hot flashes- gabapentin 600mg not helping- does not want antidepressants Kaye Stubbs [address] [facility], [place], [address], [facility] 09/10/2020 09:18:20 1 text/html This is a virtual video visit. Patient is 54 y old [...] ANCA neg, RPR neg, CCP neg, Sm DOT COMPLIANCE COORDINATOR neg, Ds DNA neg, cardiolipin neg, beta 2 glyco neg, C3 75, C4 12, ANGELICA 40 mitotic centrosome, RF neg, ESR 19, CRP nl Jaspreet Swann MD [address] [place] [address], [phone], [facility] 11/13/2020 13:47:30 1 text/html This is a virtual video visit. Patient is 55 y old [...] ANCA neg, RPR neg, CCP neg, Sm DOT COMPLIANCE COORDINATOR neg, Ds DNA neg, cardiolipin neg, beta 2 glyco neg, C3 75, C4 12, ANGELICA mitotic centrosome, RF neg, ESR 19, CRP nl Jaspreet Swann MD [address] [place] [address], [phone], [facility] 2020 16:59:52 OBGyn Episode No OBEpisode recorded.
[2025-03-28] MEDS: iohexoL 350 MG/ML 100 ML INFUS..BTL IV (09:52)
[2025-03-28] MEDS: Barium Sulfate Oral (Mocha) 450 ML ORAL.SUSP 900 ML PO (09:53)
[2025-03-28 12:53] LABS: Creatinine POC 0.8 mg/dL (0.5-1.4); GFR POC > 60
== END 2025-03-28 07:24 | disposition home or self-care (01) ==
LOC: HO.CT 07:23
PROVIDERS: PCP Nurse Practitioner Family; Visit Provider Nurse Practitioner Primary Care
DX: R10.9 Unspecified abdominal pain (principal)
CPT/HCPCS: 74177; 82565; Q9967

== ENCOUNTER → 2025-03-28 07:26 | Outpatient (BNV) | payer BC, SELFPAY | PROVIDERS: PCP Nurse Practitioner Family; Visit Provider Radiology Diagnostic Radiology | DX: R10.9 Unspecified abdominal pain (principal) | CPT/HCPCS: 74177 ==